=== PATIENT | female | born 1930 | race Caucasian/White ===

== ENCOUNTER 2017-09-16 17:17 | Inpatient (IN) | payer MEDICARE, MEDICAID ==
[~2017-09-16] VITALS: Ht 165.1 cm; Wt 49.9 kg
[2017-09-16 20:00] VITALS: BP 158/53
--- NOTE | 2017-09-16 20:05 | NUR ---
RN TEL ADMITION NOTE PT DIRECT ADMIT FROM SPRINGER, AOX3, JAPANESE SPEAKING WITH LITTLE BENGALI ABLE TO UNDERSTAND, PATIENT CARRIER NEEDED. ON NC @ 2L/PM WELL AMANDA, DENIES ANY PAIN OR DISCOMFORT. EMT BROUGHT PT STRAIGHT TO PIERRE INSTEAD OF ADMITTING. REPORT GIVEN BY DAY SHIFT NURSE PT ADMITTED FOR CHF, BASSAM TRANSPORTATION TECHNICIAN ADMITTING, CAME TO ASSES PT BY BED. NO SKIN ISSUES NOTED, W/ LAC #20G, ALL ADMITTING ORDERS ENTERED PER PROTOCOL, SAFETY MEASURES MET, CL WNL.
[2017-09-16] MEDS ORDERED: MORPHINE SULFATE INJ 2 MG/ML DISP.SYRIN IV PRN (20:30)
[2017-09-16] MEDS ORDERED: ACETAMINOPHEN 325 MG TABLET PO PRN (20:30)
[2017-09-16] MEDS ORDERED: HYDROCODONE/APAP 5/325MG 1 EACH TABLET PO PRN (20:30)
[2017-09-16] MEDS ORDERED: ONDANSETRON HCL/PF 4 MG/2 ML VIAL IVP PRN (20:30)
[2017-09-16] MEDS ORDERED: MAG HYDROX/AL HYDROX/SIMETH 30 ML UDC PO PRN (20:30)
[2017-09-16] MEDS ORDERED: TEMAZEPAM 15 MG CAPSULE PO PRN (20:30)
[2017-09-16] MEDS ORDERED: MAGNESIUM HYDROXIDE 30 ML UDC PO PRN (20:30)
[2017-09-16] MEDS ORDERED: FURO40TA5 PO (20:41)
[2017-09-16] MEDS ORDERED: LEVO500T90 PO (20:41)
[2017-09-16] MEDS ORDERED: AMIO200T4 PO (20:41)
[2017-09-16] MEDS ORDERED: NAPR-1192 PO (20:41)
[2017-09-16] MEDS ORDERED: AMLO10TA6 PO (20:41)
[2017-09-16] MEDS ORDERED: POTA20TA10 PO (20:41)
[2017-09-16] MEDS ORDERED: ERGO500040 PO (20:41)
[2017-09-16] MEDS ORDERED: VALS80TA2 PO (20:41)
[2017-09-16] MEDS ORDERED: ATOR40TA PO (20:41)
[2017-09-16] MEDS ORDERED: FERR325T23 PO (20:41)
[2017-09-16] MEDS ORDERED: ATEN50TA PO (20:41)
[2017-09-16] MEDS ORDERED: RIVA10TA PO (20:44)
[2017-09-16] MEDS ORDERED: ERGOCALCIFEROL (VITAMIN D 2) 50,000 UNIT CAPSULE PO SCH (21:00)
[2017-09-16] MEDS ORDERED: INSULIN REGULAR, HUMAN 100 UNIT/ML 3 ML VIAL SQ PRN (21:30)
[2017-09-16] MEDS ORDERED: DEXTROSE 50%-WATER 50 ML DISP.SYRIN IV PRN (21:30)
[2017-09-16] MEDS: BLOOD SUGAR DIAGNOSTIC 1 EACH STRIP IN SCH (22:32)
[2017-09-16] MEDS: ATORVASTATIN 40 MG TABLET PO SCH (22:32)
[2017-09-17] VITALS: BP 133/38
[2017-09-17 04:00] VITALS: BP 134/38
[2017-09-17 06:51] LABS: EOSINOPHILS % (AUTO) 0.6 % (0.0-6.0); HEMATOCRIT 29 % (33-45); HEMOGLOBIN 9.5 g/dL (11.5-14.8); LYMPHOCYTES # (AUTO) 0.8 /CMM (0.8-4.8); LYMPHOCYTES % (AUTO) 5.6 % (20.0-44.0); MEAN CORPUSCULAR HGB CONC 33 g/dl (31.0-36.0); MEAN CORPUSCULAR VOLUME 85 fL (82-100); MONOCYTES # (AUTO) 0.4 /CMM (0.1-1.30); NEUTROPHILS # (AUTO) 13.2 /CMM (1.8-8.9); NEUTROPHILS % (AUTO) 90.8 % (43.0-81.0); PLATELET COUNT (AUTO) 339 /CMM (150-450); RDW COEFFICIENT OF VARIATION 16.4 (11.5-15.0); RED BLOOD CELL COUNT(AUTO) 3.41 MIL/uL (4.0-5.2); WHITE BLOOD COUNT (AUTO) 14.5 K/uL (4.3-11.0)
--- NOTE | 2017-09-17 06:56 | NUR ---
RN TEL CLOSING NOTE PT ASLEEP IN BED VS STABLE, NO SOB, ALL NEEDS MET, KEPT CLEAN AND DRY, SAFETY MEASURES MET CL WR. WILL ENDORSE TO AM SHIFT TO F/U ON PLAN OF CARE.
[2017-09-17 07:02] LABS: CALCIUM, SERUM 9.2 mg/dL (8.5-10.1); CARBON DIOXIDE 28 mmol/L (21-32); CHLORIDE 108 mmol/L (98-107); CREATININE 0.8 mg/dL (0.6-1.3); GLUCOSE 92 mg/dL (74-106); MAGNESIUM 2.3 mg/dL (1.8-2.4); PHOSPHORUS 4.6 mg/dL (2.5-4.9); POTASSIUM 3.9 mmol/L (3.5-5.1); SODIUM SERUM 144 mmol/L (136-145); UREA NITROGEN, BLOOD 15 mg/dL (7-18)
[2017-09-17 07:08] LABS: TROPONIN I < 0.017 ng/mL (0.00-0.056)
[2017-09-17 07:10] LABS: CHOLESTEROL 139 mg/dL (<200); HDL CHOLESTEROL 39 mg/dL (40-60); LDL 82 mg/dL (0-99); THYROID STIMULATING HORMONE 2.995 uIU/mL (0.358-3.74); TRIGLYCERIDES 68 mg/dL (30-150)
--- NOTE | 2017-09-17 07:30 | NUR ---
DAIRY CATTLE FARM WORKER INITIAL NOTES: RECEIVED PT AWAKE IN BED. A&O X4. SPEAKS PERSIAN WELL SOME PARAGUAYAN. ON O2 VIA NC AT 2LPM, O2 SATURATION @95%. NO SOB NOTED AT THIS TIME. PT DENIES ANY PAIN OR DISCOMFORT. ON TELE MONITOR SINUS FRANCISCA, HR AT 54. SKIN INTACT. IV TO L AC #20GAUGE, PATENT AND INTACT. PT WITH BREAKFAST TRAY AT BEDSIDE. WILL CONTINUE TO MONITOR PT.
[2017-09-17 08:00] VITALS: BP_SYST 146; BP_DIAS 47; BP_DIAS 57
[2017-09-17] MEDS: BLOOD SUGAR DIAGNOSTIC 1 EACH STRIP IN SCH ×4 (08:05→22:02)
[2017-09-17 08:19] LABS: IRON, SERUM 11 ug/dl (50-175); TOTAL IRON BINDING CAPACITY 243 ug/dl (250-450)
[2017-09-17] MEDS ORDERED: FERROUS SULFATE (325 MG) 325 MG/TAB TABLET PO SCH (09:00)
[2017-09-17] MEDS: VALSARTAN 80 MG TABLET PO SCH (09:08)
[2017-09-17] MEDS: CEFTRIAXONE 1 G in IV NS 0.9% 50 ML IV SCH (09:08)
[2017-09-17] MEDS: FUROSEMIDE 40 MG TABLET PO SCH (09:08)
[2017-09-17] MEDS: ATENOLOL 50 MG TABLET PO SCH (09:09)
[2017-09-17] MEDS: AMLODIPINE BESYLATE 10 MG TABLET PO SCH (09:09)
[2017-09-17] MEDS: ASPIRIN 81 MG TAB.CHEW PO SCH (09:09)
[2017-09-17] MEDS: RIVAROXABAN 10 MG TABLET PO SCH (09:11)
[2017-09-17] MEDS: AMIODARONE HCL 200 MG TABLET PO SCH (09:11)
[2017-09-17] MEDS: POTASSIUM CHLORIDE 20 MEQ TAB.PRT.SR PO SCH (09:11)
[2017-09-17 12:00] VITALS: BP_SYST 145; BP_DIAS 35; BP_DIAS 45
--- NOTE | 2017-09-17 12:00 | NUR ---
CONTRACTS PARALEGAL NOTES: ECHO, CXR AND VENOUS DOPPLER STUDY DONE AT BEDSIDE ORDERED. CONT TO MONITOR PT.
[2017-09-17] MEDS: SOD FERRIC GLUC 125 MG in IV NS 0.9% 100 ML IV SCH (14:00)
--- NOTE | 2017-09-17 15:45 | NUR ---
LIVESTOCK SPECULATOR NOTES: GI DR AT BEDSIDE DUE TO LOW HGB LEVELS. NO S/S OF BLEEDING NOTED, RELAYED TO MD. 1ST BAG OF FERRELICIT HUNG ORDERED. AWAITING FOR PT TO HAVE BM TO COLLECT SAMPLE FOR OCCULT BLOOD. WILL CONTINUE TO MONITOR.
[2017-09-17 16:00] VITALS: BP 141/38
[2017-09-17] MEDS: POLYETHYLENE GLYCOL 3350 17 GM POWD.PACK PO SCH ×2 (16:20→22:01)
[2017-09-17] MEDS: FAMOTIDINE/PF INJ 20 MG/2 ML VIAL IV SCH (16:21)
[2017-09-17 17:22] LABS: INR 1.9 (0.87-1.13)
--- NOTE | 2017-09-17 18:30 | NUR ---
ROD FINISHER END NOTE: PT REMAINS IN BED, AWAKE. DENIES ANY PAIN OR DISCOMFORT AT THIS TIME. REMAINS ON O2 VIA NC AT 2LPM, SATURATION 92-94%. NO SOB NOTED AT THIS TIME. MEDICATIONS GIVEN WITHOUT COMPLICATION. FAMILY AT BEDSIDE THROUGHOUT THE SHIFT, AWARE OF PLAN OF CARE. NO BLEEDING NOTED THROUGHOUT THE SHIFT. LABS SCHEDULED FOR TOMORROW MORNING. BED IN LOW LOCKED POSITION, CALL LIGHT WITHIN REACH. WILL ENDORSE TO PM SHIFT NURSE FOR CONTINUITY OF CARE.
[2017-09-17 20:00] VITALS: BP 149/75
--- NOTE | 2017-09-17 20:00 | NUR ---
RN INITIAL NOTES: RECEIVED PT AWAKE IN BED. A&O X4. SPEAKS [place]IMBABWE[place] WELL SOME TURKMEN. ON O2 VIA NC AT 2LPM, O2 SATURATION @95%. NO SOB NOTED AT THIS TIME. PT DENIES ANY PAIN OR DISCOMFORT. ON TELE MONITOR SINUS FRANCISCA, HR AT 53. SKIN INTACT. IV TO L AC #20GAUGE, PATENT AND INTACT. WILL CONTINUE TO MONITOR.
[2017-09-17] MEDS: ATORVASTATIN 40 MG TABLET PO SCH (22:02)
[2017-09-18] VITALS: BP 152/45
[2017-09-18 04:00] VITALS: BP 159/50
[2017-09-18 06:24] LABS: BASOPHILS # (AUTO) 0.1 /CMM (0.0-0.2); BASOPHILS % (AUTO) 0.5 % (0.0-2.0); EOSINOPHILS % (AUTO) 2.5 % (0.0-6.0); HEMATOCRIT 29 % (33-45); HEMOGLOBIN 9.5 g/dL (11.5-14.8); LYMPHOCYTES # (AUTO) 0.8 /CMM (0.8-4.8); LYMPHOCYTES % (AUTO) 8.7 % (20.0-44.0); MEAN CORPUSCULAR HGB CONC 33 g/dl (31.0-36.0); MEAN CORPUSCULAR VOLUME 85 fL (82-100); MONOCYTES # (AUTO) 0.6 /CMM (0.1-1.30); MONOCYTES % (AUTO) 6.2 % (2.0-12.0); NEUTROPHILS % (AUTO) 82.1 % (43.0-81.0); PLATELET COUNT (AUTO) 336 /CMM (150-450); RDW COEFFICIENT OF VARIATION 16.6 (11.5-15.0); RED BLOOD CELL COUNT(AUTO) 3.38 MIL/uL (4.0-5.2); WHITE BLOOD COUNT (AUTO) 9.8 K/uL (4.3-11.0)
[2017-09-18 06:37] LABS: ALANINE AMINOTRANSFERASE 35 U/L (12-78); ALBUMIN 2.6 g/dL (3.4-5.0); ALKALINE PHOSPHATASE 130 U/L (46-116); ASPARTATE AMINOTRANSFERASE 28 U/L (15-37); BILIRUBIN,TOTAL 0.5 mg/dL (0.2-1.0); CALCIUM, SERUM 8.8 mg/dL (8.5-10.1); CARBON DIOXIDE 29 mmol/L (21-32); CHLORIDE 105 mmol/L (98-107); CREATININE 0.9 mg/dL (0.6-1.3); GLUCOSE 95 mg/dL (74-106); MAGNESIUM 2.3 mg/dL (1.8-2.4); PHOSPHORUS 3.6 mg/dL (2.5-4.9); POTASSIUM 3.5 mmol/L (3.5-5.1); SODIUM SERUM 141 mmol/L (136-145); TOTAL PROTEIN, SERUM 7.3 g/dL (6.4-8.2); UREA NITROGEN, BLOOD 15 mg/dL (7-18)
--- NOTE | 2017-09-18 06:48 | NUR ---
RN CLOSING NOTE PT ASLEEP IN BED VS STABLE, NO SOB, ALL NEEDS MET, KEPT CLEAN AND DRY, SAFETY MEASURES MET CL WR. WILL ENDORSE TO AM RN.
--- NOTE | 2017-09-18 07:30 | NUR ---
ELECTRONICS SYSTEM MECHANIC INITIAL NOTES: RECEIVED PT IN BED SLEEPING, EASY TO AROUSE. ON O2 VIA NC AT 2LPM ORDERED, O2 SATURATION 96%. PT DENIES ANY PAIN OR DISCOMFORT AT THIS TIME. BED IN LOW, LOCKED POSITION, BED ALARM ON FOR SAFETY, CALL LIGHT WITHIN REACH. PLAN OF CARE DISCUSSED WITH PT. WILL CONTINUE TO MONITOR.
--- NOTE | 2017-09-18 07:40 | NUR ---
SHEET ROCK NAILER NOTES: ID PM SHIFT RN, BED SCALE NOT WORKING FOR DAILY WEIGHTS. CHARGE NURSE AWARE AND WAITING FOR BED SCALE TO BE FIXED.
[2017-09-18] MEDS: BLOOD SUGAR DIAGNOSTIC 1 EACH STRIP IN SCH ×4 (07:46→21:32)
[2017-09-18 08:00] VITALS: BP_SYST 155; BP_DIAS 107; BP_DIAS 97
--- NOTE | 2017-09-18 08:00 | NUR ---
CUT ORDER HAND WEIGHTS: BED SCALE FIXED. PT WEIGHT IS 121 LBS.
[2017-09-18] MEDS: POTASSIUM CHLORIDE 20 MEQ TAB.PRT.SR PO SCH ×4 (08:41→12:25)
[2017-09-18] MEDS: ASPIRIN 81 MG TAB.CHEW PO SCH (08:41)
[2017-09-18] MEDS: FAMOTIDINE/PF INJ 20 MG/2 ML VIAL IV SCH ×2 (08:41→21:29)
[2017-09-18] MEDS: FUROSEMIDE 40 MG TABLET PO SCH (08:41)
[2017-09-18] MEDS: RIVAROXABAN 10 MG TABLET PO SCH (08:42)
[2017-09-18] MEDS: AMLODIPINE BESYLATE 10 MG TABLET PO SCH (08:43)
[2017-09-18] MEDS: AMIODARONE HCL 200 MG TABLET PO SCH (08:44)
[2017-09-18] MEDS: ATENOLOL 50 MG TABLET PO SCH (08:44)
[2017-09-18] MEDS: VALSARTAN 80 MG TABLET PO SCH (08:44)
[2017-09-18] MEDS: CEFTRIAXONE 1 G in IV NS 0.9% 50 ML IV SCH (08:53)
--- NOTE | 2017-09-18 10:16 | NUR ---
RN NOTES: DR WOO IN TO SEE PT. NEW ORDERS RECEIVED. PT MADE AWARE
[2017-09-18] MEDS: FUROSEMIDE 40 MG/4 ML VIAL IV SCH ×3 (10:23→18:11)
[2017-09-18 12:00] VITALS: BP 150/47
[2017-09-18] MEDS: SOD FERRIC GLUC 125 MG in IV NS 0.9% 100 ML IV SCH (14:20)
[2017-09-18 16:00] VITALS: BP 133/54
--- NOTE | 2017-09-18 18:30 | NUR ---
RN M/S END NOTES: PT REMAINS IN BED, AWAKE. A&O X4. DENIES ANY PAIN OR DISCOMFORT AT THIS TIME. BED IN LOW, LOCKED POSITION. BED ALARM ON. CALL LIGHT WITHIN REACH. REMAINS ON O2 VIA NC AT 2LPM, NO SOB NOTED. WILL ENDORSE TO PM SHIFT RN FOR CONTINUITY OF CARE.
--- NOTE | 2017-09-18 19:25 | NUR ---
MS RN NOTES RECEIVED PT ON BED. A/0 X4. ON NASAL CANULA 2LPM SATURATING WELL. IV ACCESS ON LEFT WRIST #24 PATENT AND INTACT. BED ALARM ON. HEAD OF BED ELEVATED. SIDE RAILS UP. CALL LIGHT IS PLACED WITHIN REACH. WILL CONTINUE TO MONITOR PT CLOSELY.
[2017-09-18 20:00] VITALS: BP_SYST 141; BP_DIAS 46; BP_DIAS 56
[2017-09-18] MEDS: ATORVASTATIN 40 MG TABLET PO SCH (21:29)
[2017-09-18] MEDS: POLYETHYLENE GLYCOL 3350 17 GM POWD.PACK PO SCH (21:35)
[2017-09-19 04:00] VITALS: BP 129/57
[2017-09-19 06:26] LABS: BASOPHILS % (AUTO) 0.3 % (0.0-2.0); EOSINOPHILS % (AUTO) 2.3 % (0.0-6.0); HEMATOCRIT 29 % (33-45); HEMOGLOBIN 9.5 g/dL (11.5-14.8); LYMPHOCYTES # (AUTO) 0.7 /CMM (0.8-4.8); LYMPHOCYTES % (AUTO) 7.2 % (20.0-44.0); MEAN CORPUSCULAR HGB CONC 33 g/dl (31.0-36.0); MEAN CORPUSCULAR VOLUME 85 fL (82-100); MONOCYTES # (AUTO) 0.6 /CMM (0.1-1.30); MONOCYTES % (AUTO) 6.4 % (2.0-12.0); NEUTROPHILS # (AUTO) 7.7 /CMM (1.8-8.9); NEUTROPHILS % (AUTO) 83.8 % (43.0-81.0); PLATELET COUNT (AUTO) 349 /CMM (150-450); RDW COEFFICIENT OF VARIATION 16.4 (11.5-15.0); RED BLOOD CELL COUNT(AUTO) 3.42 MIL/uL (4.0-5.2); WHITE BLOOD COUNT (AUTO) 9.1 K/uL (4.3-11.0)
[2017-09-19 06:45] LABS: ALANINE AMINOTRANSFERASE 28 U/L (12-78); ALBUMIN 2.6 g/dL (3.4-5.0); ALKALINE PHOSPHATASE 114 U/L (46-116); ASPARTATE AMINOTRANSFERASE 23 U/L (15-37); BILIRUBIN,TOTAL 0.3 mg/dL (0.2-1.0); CALCIUM, SERUM 8.7 mg/dL (8.5-10.1); CARBON DIOXIDE 28 mmol/L (21-32); CHLORIDE 105 mmol/L (98-107); CREATININE 0.9 mg/dL (0.6-1.3); GLUCOSE 96 mg/dL (74-106); MAGNESIUM 2.1 mg/dL (1.8-2.4); PHOSPHORUS 3.7 mg/dL (2.5-4.9); POTASSIUM 3.8 mmol/L (3.5-5.1); SODIUM SERUM 142 mmol/L (136-145); TOTAL PROTEIN, SERUM 7.2 g/dL (6.4-8.2); UREA NITROGEN, BLOOD 13 mg/dL (7-18)
--- NOTE | 2017-09-19 07:17 | NUR ---
MS RN NOTES NO ACUTE CHANGES NOTED DURING THE SHIFT.PROVIDED COMFORT AND SAFETY. WILL ENDORSE TO THE AM NURSE FOR JASPREET.
--- NOTE | 2017-09-19 07:30 | NUR ---
MS/RN OPENING NOTE PATIENT IS RECEIVED IN BED AWAKE. ALERT AND ORIENTED X4. DENIES SOB. RESPIRATION REGULAR AND UNLABORED. PATIENT ON OXYGEN AT 2L/MIN VIA NC. DENIES PAIN. LEFT WRIST G 24 PATENT AND SALINE LOCKED. BED LOW AND LOCKED. SIDE RAILS UP X2. CALL LIGHT WITHIN REACH. WILL CONTINUE TO MONITOR.
[2017-09-19 08:00] VITALS: BP 140/50
--- NOTE | 2017-09-19 08:00 | NUR ---
MS/RN NOTE BLOOD SUGAR 97. NO COVERAGE GIVEN.
[2017-09-19] MEDS: POTASSIUM CHLORIDE 20 MEQ TAB.PRT.SR PO SCH ×2 (08:18→09:25)
[2017-09-19] MEDS: BLOOD SUGAR DIAGNOSTIC 1 EACH STRIP IN SCH ×2 (08:18→12:21)
[2017-09-19] MEDS: FAMOTIDINE/PF INJ 20 MG/2 ML VIAL IV SCH (08:19)
[2017-09-19] MEDS: VALSARTAN 80 MG TABLET PO SCH (08:19)
[2017-09-19] MEDS: FUROSEMIDE 40 MG/4 ML VIAL IV SCH ×2 (08:19→12:22)
[2017-09-19] MEDS: ATENOLOL 50 MG TABLET PO SCH (08:20)
[2017-09-19] MEDS: AMLODIPINE BESYLATE 10 MG TABLET PO SCH (08:20)
[2017-09-19] MEDS: AMIODARONE HCL 200 MG TABLET PO SCH (08:20)
[2017-09-19] MEDS: CEFTRIAXONE 1 G in IV NS 0.9% 50 ML IV SCH (08:27)
[2017-09-19 12:00] VITALS: BP 131/72
--- NOTE | 2017-09-19 13:06 | NUR ---
MS/RN CLOSING NOTE PATIENT ALERT AND ORIENTED X4. DENIES PAIN. DENIES SOB. OXYGEN SATURATION LEVEL IN ROOM AIR AT 97%. RESPIRATION REGULAR AND UNLABORED. PATIENT IN NO APPARENT DISTRESS. DISCHARGE EDUCATIONS/INSTRUCTIONS GIVEN TO THE PATIENT AND THE PATIENT VERBALIZED UNDERSTANDING. PATIENT LEFT THE HOSPITAL IN STABLE CONDITION. PATIENT WAS PICKED UP BY SON TEOFILO IN PRIVATE CAR.
== END 2017-09-19 13:05 | disposition home or self-care (01) | DRG 291 ==
LOC: TELE1 19:54 → MEDSG1 09-18 10:04
PROVIDERS: ADMIT Nurse Practitioner Acute Care; ATTEND Nurse Practitioner Acute Care
DX: I11.0 Hypertensive heart disease with heart failure (principal); E43 Unspecified severe protein-calorie malnutrition; N39.0 Urinary tract infection, site not specified; D68.59 Other primary thrombophilia; I50.33 Acute on chronic diastolic (congestive) heart failure; I48.0 Paroxysmal atrial fibrillation; E78.5 Hyperlipidemia, unspecified; E87.6 Hypokalemia; I25.10 Atherosclerotic heart disease of native coronary artery without angina pectoris; Z95.1 Presence of aortocoronary bypass graft; B96.89 Other specified bacterial agents as the cause of diseases classified elsewhere; E11.65 Type 2 diabetes mellitus with hyperglycemia; I73.9 Peripheral vascular disease, unspecified; K59.00 Constipation, unspecified; D50.9 Iron deficiency anemia, unspecified
CPT/HCPCS: 36415; 71045-TC; 80048-TC; 80053-TC; 80061-TC; 82962-TC; 83540-TC; 83735-TC; 84100-TC; 84443-TC; 84484-TC; 85025-TC; 85610-TC; 87081-TC; 93307-TC; A4216; J0696; J1815; J1940; J2916; J3490; J7030

== ENCOUNTER 2019-09-24 08:00 | Inpatient (IN) | payer MEDICARE, OTHER ==
[2019-09-24] VITALS (11 sets, daily range): BP systolic 134–159; BP diastolic 66–86
[~2019-09-24] VITALS: Ht 152.4 cm; Wt 42.6 kg
[~2019-09-24 08:00] MED LIST: AMIO200T4 PO; AMLO10TA7 PO; ATEN50TA PO; ATOR40TA PO; ERGO500040 PO; FERR325T23 PO; FURO40TA5 PO; LEVO500T90 PO; NAPR-1192 PO; POTA20TA10 PO; RIVA10TA PO; VALS80TA2 PO
--- NOTE | 2019-09-24 08:00 | NUR ---
PT BIBRA FROM SNF C/O SOB STARTED 30 MINS BEATER AND PULPER FEEDER, PT IS AAOX2, NOTED RESPIRATORY DISTRESS, HOOKED TO O2 NB AT 15LPM AND J2EE PROGRAMMER, KEPT RESTED AND COMFORTABLE, WILL CONTINUE TO MONITOR.
--- NOTE | 2019-09-24 08:05 | NUR ---
AT BEDSIDE FOR EVAL.
--- NOTE | 2019-09-24 08:15 | NUR ---
IV LINE ESTABLISHED BLOOD DRAWN AND SENT TO LAB.
[2019-09-24 08:28] LABS: ABG BASE EXCESS 2.3 mmol/L; ABG OXYGEN SATURATION 90.7 % (92.0-98.5); ABG PCO2 56.2 mmHg (35.0-45.0); ABG PH 7.335 (7.350-7.450); AaDO2 447.4 mmHg; COHb 0.4 % (0.5-1.5); MetHb 0.5 % (0.0-1.5); O2Hb 89.9 % (94.0-97.0); SITE, ABG Left Radial
[2019-09-24] MEDS ORDERED: FUROSEMIDE 20 MG/2 ML VIAL ONE (08:28)
[2019-09-24] MEDS ORDERED: AMIN30LI2 PO (08:29)
[2019-09-24] MEDS ORDERED: DILTIAZEM HCL 25 MG IV ONE (08:29)
[2019-09-24] MEDS ORDERED: CRAN425C6 PO (08:29)
[2019-09-24] MEDS ORDERED: COLL30OI TP (08:29)
[2019-09-24] MEDS ORDERED: CRAN3875 PO (08:29)
[2019-09-24] MEDS ORDERED: BISM262O64 PO (08:29)
[2019-09-24] MEDS ORDERED: TRAZ-182 PO (08:29)
[2019-09-24] MEDS ORDERED: ACET-2605 PO (08:29)
[2019-09-24] MEDS ORDERED: MULT-447 PO (08:29)
[2019-09-24] MEDS ORDERED: LEVO50TA8 PO (08:29)
[2019-09-24] MEDS ORDERED: ACID1TAB12 PO (08:29)
[2019-09-24] MEDS ORDERED: VANC125C11 PO (08:29)
[2019-09-24] MEDS ORDERED: ARGI1POW13 PO (08:29)
[2019-09-24] MEDS ORDERED: METO25TA3 PO (08:29)
[2019-09-24] MEDS ORDERED: ASPI-1169 PO (08:29)
[2019-09-24] MEDS ORDERED: OMEP20CA15 PO (08:29)
[2019-09-24] MEDS ORDERED: ACET-868 PO (08:29)
[2019-09-24] MEDS ORDERED: OMEG1CAP PO (08:29)
[2019-09-24] MEDS ORDERED: ASCO-352 PO (08:29)
[2019-09-24] MEDS ORDERED: METO-295 PO (08:29)
--- NOTE | 2019-09-24 08:29 | NUR ---
CALLED FOR ICU BED.
[2019-09-24] MEDS ORDERED: DILTIAZEM HCL IV 125 MG in IV D5W 100 ML IV ONE (08:30)
[2019-09-24] MEDS ORDERED: ASPIRIN 300 MG/SUPP.RECT RC ONE (08:30)
[2019-09-24] MEDS ORDERED: FUROSEMIDE 20 MG/2 ML VIAL IV ONE (08:30)
[2019-09-24] MEDS ORDERED: DILTIAZEM HCL 25 MG IV IVP ONE (08:30)
--- NOTE | 2019-09-24 08:35 | NUR ---
COVID SWAB OBTAINED AND SENT TO LAB.
--- NOTE | 2019-09-24 08:36 | NUR ---
MOVE SHEET SUBMITTED TO ADMITTING.
--- NOTE | 2019-09-24 08:42 | NUR ---
FRANDY CALLED ITS ALE [facility]
--- NOTE | 2019-09-24 08:43 | NUR ---
GOT BED ICU 262
--- NOTE | 2019-09-24 08:44 | NUR ---
RT AT BEDSIDE FOR BIPAP SET UP ORDERED BY .
[2019-09-24] MEDS ORDERED: ACETAMINOPHEN 650 MG/SUPP.RECT RC ONE (08:57)
[2019-09-24] MEDS ORDERED: CEFEPIME 1 GM in IV D5W 50 ML IV ONE ×2 (09:00→15:00)
[2019-09-24] MEDS ORDERED: VANCOMYCIN 1 GM in IV D5W 250 ML IV ONE (09:00)
[2019-09-24 09:05] LABS: BASOPHILS # (AUTO) 0.2 /CMM (0.0-0.2); BASOPHILS % (AUTO) 0.5 % (0.0-2.0); HEMATOCRIT 38 % (33-45); HEMOGLOBIN 12.2 g/dL (11.5-14.8); LYMPHOCYTES # (AUTO) 1.9 /CMM (0.8-4.8); MEAN CORPUSCULAR HGB CONC 32 g/dl (31.0-36.0); MEAN CORPUSCULAR VOLUME 99 fL (82-100); MONOCYTES # (AUTO) 1.5 /CMM (0.1-1.30); MONOCYTES % (AUTO) 4.1 % (2.0-12.0); NEUTROPHILS # (AUTO) 34.3 /CMM (1.8-8.9); NEUTROPHILS % (AUTO) 90.4 % (43.0-81.0); PLATELET COUNT (AUTO) 514 /CMM (150-450); RED BLOOD CELL COUNT(AUTO) 3.84 MIL/uL (4.0-5.2)
[2019-09-24 09:10] LABS: CALCIUM, SERUM 9.3 mg/dL (8.5-10.1); CARBON DIOXIDE 33 mmol/L (21-32); CHLORIDE 98 mmol/L (98-107); CREATININE 0.8 mg/dL (0.6-1.3); GLUCOSE 160 mg/dL (74-106); POTASSIUM 4.5 mmol/L (3.5-5.1); SODIUM SERUM 137 mmol/L (136-145); UREA NITROGEN, BLOOD 18 mg/dL (7-18)
[2019-09-24 09:11] LABS: WHITE BLOOD COUNT (AUTO) 37.9 K/uL (4.3-11.0)
[2019-09-24 09:23] LABS: ALANINE AMINOTRANSFERASE 72 U/L (12-78); ALBUMIN 2.6 g/dL (3.4-5.0); ALKALINE PHOSPHATASE 291 U/L (46-116); ASPARTATE AMINOTRANSFERASE 92 U/L (15-37); B-TYPE NATRIURETIC PEPTIDE 7750 PG/ML (0-125); BILIRUBIN,TOTAL 0.6 mg/dL (0.2-1.0); TOTAL PROTEIN, SERUM 7.5 g/dL (6.4-8.2)
[2019-09-24 09:36] LABS: APPEARANCE,URINE Clear (CLEAR); BILIRUBIN,URINE Negative (NEGATIVE); BLOOD, URINE Large Ery/uL (NEGATIVE); COLOR,URINE Yellow (YELLOW); KETONES,URINE Negative (NEGATIVE); LEUKOCYTE ESTERASE ,URINE Large (NEGATIVE); NITRITE, URINE Negative (NEGATIVE); PH,URINE 6.5 (5.0-8.0); PROTEIN,URINE 100 mg/dl (NEGATIVE); UGLUCOSE Negative (NEGATIVE); UROBILINOGEN,URINE 0.2 EU/dL (0.2)
[2019-09-24 09:41] LABS: BACTERIA,URINE Few /HPF (None Seen); SQUAMOUS EPITHELIAL CELL,UR Few /HPF (None Seen)
[2019-09-24 10:02] LABS: CREATINE KINASE, TOTAL 61 U/L (26-192); FERRITIN 2788 ng/mL (8-388)
[2019-09-24 10:03] LABS: C-REACTIVE PROTEIN 11.9 mg/dL (0.0-0.9)
[2019-09-24 10:22] LABS: ABG BASE EXCESS 5.9 mmol/L; ABG OXYGEN SATURATION 97.4 % (92.0-98.5); ABG PCO2 52.6 mmHg (35.0-45.0); ABG PH 7.401 (7.350-7.450); ABG PO2 105.9 mmHg (75.0-100.0); AaDO2 409.3 mmHg; COHb 0.4 % (0.5-1.5); MetHb 0.4 % (0.0-1.5); O2Hb 96.6 % (94.0-97.0); SITE, ABG Right Radial; VENT MODE, BG 15/5 80% RR18
--- NOTE | 2019-09-24 10:50 | NUR ---
REPORT GIVEN TO ROME POWELL FOR JASPREET.
--- NOTE | 2019-09-24 10:50 | NUR ---
DINING ROOM HOST NOTE RECEIVED REPORT FROM ER NURSE CRYSTAL
[2019-09-24 11:40] LABS: D-DIMER 2.1 mg/L(FEU (0.17-0.50)
[2019-09-24 11:50] LABS: LYMPHOCYTES % (MANUAL) 11 % (16-48); MONOCYTES % (MANUAL) 3 % (0-11.0); NEUTROPHILS % (MANUAL) 86 (42-76)
[2019-09-24] MEDS ORDERED: DEXAMETHASONE SOD PHOSPHATE 10 MG/ML VIAL IV ONE (12:00)
[2019-09-24] MEDS ORDERED: DILTIAZEM HCL IV 125 MG in IV NS 0.9% 100 ML IV PRN (12:20)
--- NOTE | 2019-09-24 13:30 | NUR ---
FINANCIAL SERVICES ASSISTANT NOTE SEEN AND EXAMINED BY DR LOMAS, HE WILL PLACE ADMITTING ORDERS
[2019-09-24] MEDS: FUROSEMIDE 40 MG/4 ML VIAL IV SCH ×3 (13:31→21:06)
[2019-09-24] MEDS ORDERED: Z GUARD REMEDY 2 OZ OINT TP PRN (14:00)
[2019-09-24] MEDS ORDERED: ONDANSETRON HCL/PF 4 MG/2 ML VIAL IVP PRN (14:00)
[2019-09-24] MEDS ORDERED: FEE PK DOSING 1 MIN EA MC ONE (14:39)
[2019-09-24 14:47] LABS: BILIRUBIN,DIRECT 0.1 mg/dL (0.0-0.2)
--- NOTE | 2019-09-24 14:55 | NUR ---
STUNT PERSON NOTE CLARIFIED CDIFF ORDER WITH MD, INFORMED STOOL IS SOFT AND BROWN, PER MD HE WOULD STILL LIKE TO HAVE STOOL COLLECTED. PATIENT WAS ON VANCOCIN BEFORE ADMISSION.
--- NOTE | 2019-09-24 15:07 | NUR ---
HIGH SCHOOL PROFESSIONAL NOTE CLARIFIED CARDIZEM DRIP ORDER THAT CONTINUED FROM ER. PER DR CSEILIA DAVENPORT AND START ON AMIO DRIP
[2019-09-24] MEDS ORDERED: AMIODARONE 150 MG in IV D5W 100 ML IV ONE (15:30)
[2019-09-24 15:40] LABS: ABG BASE EXCESS 7.9 mmol/L; ABG OXYGEN SATURATION 98.7 % (92.0-98.5); ABG PCO2 47.6 mmHg (35.0-45.0); ABG PH 7.457 (7.350-7.450); ABG PO2 131.5 mmHg (75.0-100.0); AaDO2 533.9 mmHg; MetHb 0.3 % (0.0-1.5); O2Hb 98.4 % (94.0-97.0); SITE, ABG Right Radial; VENT MODE, BG nrb
[2019-09-24] MEDS: AMIODARONE 450 MG in IV D5W 250 ML IV PRN ×2 (16:45→23:46)
[2019-09-24] MEDS ORDERED: FERROUS SULFATE (325 MG) 325 MG/TAB TABLET PO SCH (17:00)
[2019-09-24] MEDS: RIVAROXABAN 10 MG TABLET PO SCH (18:54)
[2019-09-24] MEDS: IPRATROPIUM BROMIDE 14 GM INHALER (or 12.9 GM) IH SCH (19:30)
--- NOTE | 2019-09-24 19:30 | NUR ---
RN NOTES RECEIVED PATIENT RESTING ON BED. PUI. BREATHING EVEN AND UNLABORED. ON O2 10LPM VIA SIMPLE MASK. DENIES PAIN NO SOB OR ACUTE RESP. DISTRESS. AFEBRILE. AOX3 SOFT SPOKEN. AFIB CONTROLLED ON TELE MONITOR. OFFERED TO EAT DINNER AND ATE SOUP WELL. IV SITE ON LFA G 20 AND LEJ G 20 INTACT AND PATENT RUNNING WITH AMIODARONE DRIP @ 1MG/MIN. DENIES CHEST PAIN. NUNN CATH DRAINED VIA GRAVITY AND KEPT OFF FROM THE FLOOR. KEPT PT CLEAN AND DRY WILL CONTINUE TO MONITOR.
[2019-09-24] MEDS ORDERED: BUMETANIDE INJ 4 MG in IV NS 0.9% 24 ML IV ONE (21:00)
[2019-09-24] MEDS: VANCOMYCIN HCL 125 MG/2.5 ML ORAL.SUSP PO SCH (21:06)
[2019-09-24] MEDS: ATORVASTATIN 40 MG TABLET PO SCH (21:21)
[2019-09-24] MEDS: TRAZODONE 50 MG TABLET PO SCH (21:21)
--- NOTE | 2019-09-24 22:30 | NUR ---
RN NOTES AMIODARONE DRIP CHANGE RATE TO 0.5 MG./MIN PROTOCOL ORDER WILL CONTINUE TO MONITOR.
[2019-09-25] VITALS (24 sets, daily range): BP systolic 111–146; BP diastolic 64–90
[2019-09-25] MEDS: IPRATROPIUM BROMIDE 14 GM INHALER (or 12.9 GM) IH SCH ×4 (01:30→19:30)
[2019-09-25] MEDS: VANCOMYCIN HCL 125 MG/2.5 ML ORAL.SUSP PO SCH ×4 (02:09→17:05)
[2019-09-25 04:20] LABS: HEMATOCRIT 37 % (33-45); HEMOGLOBIN 12.2 g/dL (11.5-14.8); LYMPHOCYTES # (AUTO) 0.5 /CMM (0.8-4.8); LYMPHOCYTES % (AUTO) 3.5 % (20.0-44.0); MEAN CORPUSCULAR HGB CONC 33 g/dl (31.0-36.0); MEAN CORPUSCULAR VOLUME 97 fL (82-100); MONOCYTES # (AUTO) 0.1 /CMM (0.1-1.30); MONOCYTES % (AUTO) 1.1 % (2.0-12.0); NEUTROPHILS # (AUTO) 12.3 /CMM (1.8-8.9); NEUTROPHILS % (AUTO) 95.4 % (43.0-81.0); PLATELET COUNT (AUTO) 284 /CMM (150-450); RED BLOOD CELL COUNT(AUTO) 3.85 MIL/uL (4.0-5.2); WHITE BLOOD COUNT (AUTO) 12.9 K/uL (4.3-11.0)
[2019-09-25] MEDS: VANCOMYCIN 0.75 GM in IV D5W 250 ML IV SCH ×2 (04:48→21:35)
[2019-09-25 04:55] LABS: ALBUMIN 2.2 g/dL (3.4-5.0); BILIRUBIN,TOTAL 0.5 mg/dL (0.2-1.0); CALCIUM, SERUM 8.7 mg/dL (8.5-10.1); CREATININE 0.7 mg/dL (0.6-1.3); MAGNESIUM 1.7 mg/dL (1.8-2.4); PHOSPHORUS 5.1 mg/dL (2.5-4.9); POTASSIUM 3.9 mmol/L (3.5-5.1); TOTAL PROTEIN, SERUM 6.8 g/dL (6.4-8.2)
--- NOTE | 2019-09-25 07:10 | NUR ---
RN NOTES PATIENT ASLEEP WELL. NO SIGNIFICANT CHANGES THROUGHOUT THE SHIFT. CONTINUE ON O2 TITRATED AT 2LPM VIA NC TOLERATED WELL SATURATION REMAINED >92%. AFEBRILE. VSS. REMAINED AFIB CONTROLLED. CONTINUE ON AMIODARONE DRIP @ 0.5 MG/MIN. BEDBATH DONE AND TOLERATED WELL. ENDORSED CONTINUITY OF CARE TO AM NURSE.
--- NOTE | 2019-09-25 08:00 | NUR ---
ICU/RN: INITIAL NOTES,AM RECEIVED REPORT FROM NIGHT NURSE. PT ALERT, AWAKE, FOLLOWS COMMANDS. ON NASAL CANULA 2LITERS, TOLERATING WELL, NO ACUTE DISTRESS NOTED. PT ON TELE, CLAUDE ALEGRIA GTT D/C'S. PT TURNED AND REPOSITIONED. NUNN CATH DRAINING YELLOW URINE. ALL NEEDS WILL BE ATTENDED TO, SAFETY MEASURES TAKEN, BED IN LOW POSITION, SIDE RAILS UP, CALL LIGHT WITHIN REACH. WILL CONTINUE CARE.
--- NOTE | 2019-09-25 08:37 | NUR ---
WOUND CARE CONSULT: REVIEWED CHART, NURSING DOCUMENTATION AND ADMISSION PHOTOS WHICH SHOW SACRAL SCARRING WHICH EXTENDS TO BUTTOCKS AND PURPLE DISCOLORATION, PRESENT ON ADMISSION. RECOMMEND SURGICAL CONSULT. DR ELLINGTON NOTIFIED. RECOMMENDATIONS MADE FOR SKIN PROTECTION. DISCUSSED WITH NURSING STAFF. WILL SEE PRN. KOO IN AGREEMENT WITH PLAN OF CARE. PER NURSING STAFF, PT MOVES ABOUT IN BED AT TIMES.
--- NOTE | 2019-09-25 08:50 | NUR ---
ICU/RN: WOUND NURSE AT BEDSIDE. PT ASSESSED, WILL FOLLOW THROUGH WITH ORDERS. PT TURNED AND REPOSITIONED.
[2019-09-25] MEDS: Magnesium 1GM/D5W 100ML PREMIX 100 ML IV SCH ×2 (08:57→12:19)
[2019-09-25] MEDS: METOPROLOL SUCCINATE 25 MG TAB.SR.24H PO SCH (08:58)
[2019-09-25] MEDS: FUROSEMIDE 100 MG/10 ML VIAL IV SCH ×3 (08:58→17:04)
[2019-09-25] MEDS ORDERED: DEXAMETHASONE SOD PHOSPHATE 10 MG/ML VIAL IV SCH (09:00)
[2019-09-25] MEDS: PANTOPRAZOLE 40 MG VIAL IV SCH (09:03)
[2019-09-25] MEDS: ASPIRIN 81 MG TAB.CHEW PO SCH (09:03)
[2019-09-25] MEDS: LEVOTHYROXINE SODIUM 50 MCG TABLET PO SCH (09:03)
[2019-09-25] MEDS: THERAHONEY GEL 1.5 OZ TUBE TP SCH (09:04)
[2019-09-25] MEDS: CEFEPIME 2 GM in IV D5W 100 ML IV SCH (09:06)
[2019-09-25] MEDS ORDERED: FUROSEMIDE 100 MG/10 ML VIAL IV SCH (17:00)
[2019-09-25] MEDS: RIVAROXABAN 10 MG TABLET PO SCH (17:08)
--- NOTE | 2019-09-25 17:13 | NUR ---
RT BREATHING TX NOT GIVEN DUE TO PENDING COVID-19 RESULTS
--- NOTE | 2019-09-25 19:20 | NUR ---
ICU/RN: ENDING NOTES,AM REPORT ENDORSED TO NIGHT NURSE FOR JASPREET. PT ON NASAL CANULA, NO ACUTE DISTRESS NOTED. ALERT, AWAKE. BED BATH GIVEN, TURNED AND REPOSITIONED. WILL CONTINUE CARE
--- NOTE | 2019-09-25 19:20 | NUR ---
RN NOTES PATIENT AWAKE ON BED. DENIES PAIN WITH O2 2LPM VIA NC TOLERATED WELL WITHOUT ACUTE RESPIRATORY DISTRESS. AFEBRILE. RESULT PENDING FOR COVID TEST ISOLATION PRECAUTION STILL OBSERVED UNTIL RESULT RECEIVED. TELE MONITOR REVEALS AFIB CONTROLLED. NO CHEST PAIN. IV SITE INTACT AND PATENT NO DRIPS PRESENT. KEPT PT CLEAN AND DRY. MOTIVATED AND HELP TO REPOSITION. WILL CONTINUE TO MONITOR.
[2019-09-25] MEDS: ATORVASTATIN 40 MG TABLET PO SCH (21:36)
[2019-09-25] MEDS: TRAZODONE 50 MG TABLET PO SCH (21:36)
--- NOTE | 2019-09-25 22:50 | NUR ---
RN NOTES ECHOCARDIOGRAM DONE AT BEDSIDE.
[2019-09-26] VITALS (16 sets, daily range): BP systolic 105–139; BP diastolic 57–98
[2019-09-26] MEDS: VANCOMYCIN HCL 125 MG/2.5 ML ORAL.SUSP PO SCH ×4 (00:04→18:03)
[2019-09-26] MEDS: IPRATROPIUM BROMIDE 14 GM INHALER (or 12.9 GM) IH SCH ×3 (01:11→20:40)
[2019-09-26 05:58] LABS: BILIRUBIN,TOTAL 0.3 mg/dL (0.2-1.0); CALCIUM, SERUM 8.4 mg/dL (8.5-10.1); CREATININE 0.9 mg/dL (0.6-1.3); MAGNESIUM 2.4 mg/dL (1.8-2.4); PHOSPHORUS 3.6 mg/dL (2.5-4.9); POTASSIUM 3.1 mmol/L (3.5-5.1)
--- NOTE | 2019-09-26 07:12 | NUR ---
RN NOTES PATIENT ASLEEP WELL. NO SIGNIFICANT CHANGES NOTED/ AFEBRILE. NO SOB OR ACUTE RESPIRATORY DISTRESS. REMAINED AFIB CONTROLLED. BED BATH DONE AND TOLERATED HELPING DURING BED BATH. ALL DUE MEDICINE ADMINISTERED ORDERED NO EPISODE OF LOOSE BOWEL NO BM ON THIS SHIFT. CONTINUE ON VANCO FOR C-DIF. CONTINUATION FROM SNF. NUNN CATH DRAINED VIA GRAVITY. KEPT PT CLEAN AND DRY. ENDORSED CONTINUITY OF CARE TO AM NURSE.
[2019-09-26 08:18] LABS: BASOPHILS % (AUTO) 0.2 % (0.0-2.0); HEMATOCRIT 39 % (33-45); HEMOGLOBIN 13.1 g/dL (11.5-14.8); LYMPHOCYTES # (AUTO) 0.4 /CMM (0.8-4.8); LYMPHOCYTES % (AUTO) 4.1 % (20.0-44.0); MEAN CORPUSCULAR HGB CONC 33 g/dl (31.0-36.0); MEAN CORPUSCULAR VOLUME 96 fL (82-100); MONOCYTES # (AUTO) 0.4 /CMM (0.1-1.30); MONOCYTES % (AUTO) 3.9 % (2.0-12.0); NEUTROPHILS # (AUTO) 10.1 /CMM (1.8-8.9); NEUTROPHILS % (AUTO) 91.8 % (43.0-81.0); PLATELET COUNT (AUTO) 284 /CMM (150-450); RED BLOOD CELL COUNT(AUTO) 4.09 MIL/uL (4.0-5.2); WHITE BLOOD COUNT (AUTO) 10.9 K/uL (4.3-11.0)
[2019-09-26] MEDS ORDERED: BUMETANIDE INJ 16 MG in IV NS 0.9% 16 ML IV ONE (09:00)
--- NOTE | 2019-09-26 09:15 | NUR ---
received pt from shift leader, a/o x4, A fib controlled, on 2L NC, sat well, tolerates diet, v/s stable, no pain, pt turned and repositioned.
[2019-09-26] MEDS: ASPIRIN 81 MG TAB.CHEW PO SCH (09:29)
[2019-09-26] MEDS: POTASSIUM CHLORIDE 20 MEQ TAB.PRT.SR PO SCH ×3 (09:29→11:15)
[2019-09-26] MEDS: METOPROLOL SUCCINATE 25 MG TAB.SR.24H PO SCH (09:30)
[2019-09-26] MEDS: PANTOPRAZOLE 40 MG VIAL IV SCH (09:30)
[2019-09-26] MEDS: LEVOTHYROXINE SODIUM 50 MCG TABLET PO SCH (09:30)
[2019-09-26] MEDS: THERAHONEY GEL 1.5 OZ TUBE TP SCH (09:32)
[2019-09-26] MEDS: CEFEPIME 2 GM in IV D5W 100 ML IV SCH (09:32)
[2019-09-26 10:29] LABS: LYMPHOCYTES % (MANUAL) 3 % (16-48); MONOCYTES % (MANUAL) 7 % (0-11.0); NEUTROPHILS % (MANUAL) 90 (42-76)
--- NOTE | 2019-09-26 12:44 | NUR ---
pt transferred to [facility], ACLS followed, v/s stable, no pain.
--- NOTE | 2019-09-26 12:45 | NUR ---
DREDGE MECHANIC NOTES RECEIVED PT FROM LAST REPAIRER VIA BED, PT IS AWAKE, ALERT AND ORIENTED, NO COMPLAINT OF PAIN, NOT IN DISTRESS, ROOM SET UP ORIENTATION PROVIDED TO PT, VERBALIZED UNDERSTANDING, CALL LIGHT PLACED WITHIN REACH, ASSISTED WITH LUNCH, KEPT COMFORTABLE.
[2019-09-26] MEDS: VANCOMYCIN 0.75 GM in IV D5W 250 ML IV SCH (16:00)
[2019-09-26] MEDS: ENSURE ENLIVE 237 ML LIQUID (VANILLA) PO SCH (18:02)
--- NOTE | 2019-09-26 18:22 | NUR ---
RESTORATION ECOLOGIST Closing Notes Patient is A/O X 4 alert and calm. She is in a 2L nasal cannula. IV IJ# 20G is intact infusing Bumex in NS at 10mls/hr. Scheduled medication were given. Tolerated dinner well. Bed is in low position semi fowlers with side rails up x 2 for safety. Call light is within reach. AM labs due in the morning, continue with antibiotics and follow up with infection disease, diuretics per cardiology. Will endorse to the PM shift.
--- NOTE | 2019-09-26 19:30 | NUR ---
telecommunications sales representative opening notes received patient in bed. a/ox1. on oxygen 2l/min via nasa cannula. respirations are even and unlabored. no s/s sob noted. no c/o pain at this itme . external tele monitor reads controlled afib hr 70-80s. in n o apparent in stress. iv access in right IJ#20 running bumex. also iv access in LFA#20 patent and saline locked. burciaga catheter is present, draining to gravity, urine is yellow and clear. bed is low and locked, hob elevated in semi fowlers,. side rial sup x2, call light within reach. will continue to monitor.
[2019-09-26] MEDS: TRAZODONE 50 MG TABLET PO SCH (21:55)
[2019-09-26] MEDS: ATORVASTATIN 40 MG TABLET PO SCH (21:55)
[2019-09-27] VITALS: BP 104/66
[2019-09-27] MEDS: VANCOMYCIN HCL 125 MG/2.5 ML ORAL.SUSP PO SCH ×5 (01:08→23:47)
[2019-09-27] MEDS: IPRATROPIUM BROMIDE 14 GM INHALER (or 12.9 GM) IH SCH ×3 (02:59→19:30)
[2019-09-27 04:00] VITALS: BP 124/71
--- NOTE | 2019-09-27 06:21 | NUR ---
director telemetry closing notes patient in bed. a/ox4. remain on oxygen 2l/min via nasal cannula. respirations are even and unlabored. no sob noted. no c/o pain . external tele monitor reads controlled afib. no distress. iv access maintained in right IJ#20 patent and saline locked. also iv access in LFA#20 patent and saline locked. burciaga catheter is maintained output 1100. bed is low and locked, hob elevated in semi fowlers,. side rial sup x2, call light within reach. will endorse to next shift.
[2019-09-27] MEDS: LEVOTHYROXINE SODIUM 50 MCG TABLET PO SCH (06:34)
[2019-09-27 07:09] LABS: BASOPHILS % (AUTO) 0.1 % (0.0-2.0); EOSINOPHILS % (AUTO) 0.1 % (0.0-6.0); HEMATOCRIT 39 % (33-45); HEMOGLOBIN 12.6 g/dL (11.5-14.8); LYMPHOCYTES # (AUTO) 0.9 /CMM (0.8-4.8); LYMPHOCYTES % (AUTO) 7.6 % (20.0-44.0); MEAN CORPUSCULAR HGB CONC 33 g/dl (31.0-36.0); MEAN CORPUSCULAR VOLUME 97 fL (82-100); MONOCYTES # (AUTO) 0.7 /CMM (0.1-1.30); MONOCYTES % (AUTO) 6.1 % (2.0-12.0); NEUTROPHILS # (AUTO) 10.3 /CMM (1.8-8.9); NEUTROPHILS % (AUTO) 86.1 % (43.0-81.0); PLATELET COUNT (AUTO) 279 /CMM (150-450); RED BLOOD CELL COUNT(AUTO) 3.98 MIL/uL (4.0-5.2)
--- NOTE | 2019-09-27 07:31 | NUR ---
TORCH OPERATOR OPENING NOTES RECEIVED PATIENT IN BED, ASLEEP. PATIENT IS ON OXYGEN THERAPY AT 2 LPM VIA NASAL CANNULA. BREATHING IS EVEN AND UNLABORED, NO SOB NOTED AT THIS TIME. EXTERNAL SHEARING SHED WORKER WITH A CURRENT READING OF CONTROLLED AFIB IN THE 70S. NO S/S OF PAIN NOTED SUCH MOANING, FACIAL GRIMACING OR GUARDING. LFA G # 20 AND RIJ G # 20 IV ACCESS ARE PRESENT AND INTACT. NUNN CATH PRESENT DRAINING YELLOW URINE. SAFETY PRECAUTIONS IN PLACE; BED IN LOW POSITION AND LOCKED, RAILS UP X2, CALL LIGHT WITHIN REACH. WILL CONTINUE TO MONITOR PATIENT.
[2019-09-27 07:44] LABS: ALANINE AMINOTRANSFERASE 120 U/L (12-78); ALBUMIN 2.1 g/dL (3.4-5.0); ALKALINE PHOSPHATASE 250 U/L (46-116); ASPARTATE AMINOTRANSFERASE 87 U/L (15-37); BILIRUBIN,TOTAL 0.3 mg/dL (0.2-1.0); CALCIUM, SERUM 8.5 mg/dL (8.5-10.1); CARBON DIOXIDE 39 mmol/L (21-32); CHLORIDE 96 mmol/L (98-107); CREATININE 0.7 mg/dL (0.6-1.3); GLUCOSE 81 mg/dL (74-106); MAGNESIUM 2.2 mg/dL (1.8-2.4); PHOSPHORUS 2.9 mg/dL (2.5-4.9); POTASSIUM 3.4 mmol/L (3.5-5.1); SODIUM SERUM 135 mmol/L (136-145); TOTAL PROTEIN, SERUM 6.4 g/dL (6.4-8.2); UREA NITROGEN, BLOOD 23 mg/dL (7-18)
[2019-09-27] MEDS: ENSURE ENLIVE 237 ML LIQUID (VANILLA) PO SCH (08:10)
[2019-09-27] MEDS: THERAHONEY GEL 1.5 OZ TUBE TP SCH (08:10)
[2019-09-27] MEDS: CEFEPIME 2 GM in IV D5W 100 ML IV SCH (08:12)
[2019-09-27] MEDS: ASPIRIN 81 MG TAB.CHEW PO SCH (08:46)
[2019-09-27] MEDS: PANTOPRAZOLE 40 MG VIAL IV SCH (08:47)
[2019-09-27] MEDS: METOPROLOL SUCCINATE 25 MG TAB.SR.24H PO SCH (08:47)
[2019-09-27 10:00] VITALS: BP 122/62
[2019-09-27] MEDS ORDERED: VANCOMYCIN 0.75 GM in IV D5W 250 ML IV SCH (10:00)
[2019-09-27] MEDS ORDERED: POTASSIUM CHLORIDE 20 MEQ POWDER PACKET PO SCH (10:30)
[2019-09-27] MEDS: ACETAMINOPHEN 325 MG TABLET PO PRN (10:33)
[2019-09-27 16:25] VITALS: BP 96/52
[2019-09-27] MEDS: LINEZOLID 600 MG TABLET PO SCH (18:34)
--- NOTE | 2019-09-27 18:40 | NUR ---
MS RN CLOSING NOTES PATIENT REMAINS IN BED, AWAKE, A/O X3. PATIENT IS ON OXYGEN THERAPY AT 2 LPM VIA NASAL CANNULA. BREATHING IS EVEN AND UNLABORED, NO SOB NOTED DURING THE SHIFT. NO COMPLAINS OF PAIN DURING THE DAY. LFA G # 20 AND RIJ G # 20 IV ACCESS ARE PRESENT AND INTACT. NUNN CATH PRESENT DRAINING YELLOW URINE WITH 150 MLS OUTPUT. ALL NEEDS ATTENDED TO THROUGHOUT THE DAY. SAFETY PRECAUTIONS REMAIN IN PLACE; BED IN LOW POSITION AND LOCKED, RAILS UP X2, CALL LIGHT WITHIN REACH. WILL ENDORSE TO POOL TECHNICIAN NURSE.
--- NOTE | 2019-09-27 18:49 | NUR ---
MS RN NOTES DAILY NUNN OUTPUT 1100
--- NOTE | 2019-09-27 19:30 | NUR ---
MS RN OPENING NOTES PATIENT RECEIVED RESTING IN BED SLEEPING. ON 2L OF O2 WITH BREATHING EVEN AND UNLABORED, NO SOB NOTED. NO SIGNS OF ACUTE DISTRESS. NO COMPLAINTS OF PAIN OR DISCOMFORT AT THE MOMENT- NO FACIAL GRIMACING NOTED. NUNN IN PLACE AND NOTED. IV LOCATED ON LFA #20 AND RIJ #20. SAFETY PRECAUTIONS IN PLACE WITH BED IN LOWEST POSITION, CALL LIGHT WITHIN REACH, BREAKS ON, SIDE RAILS UP. WILL CONTINUE TO MONITOR THROUGHOUT THE NIGHT.
[2019-09-27 20:00] VITALS: BP 121/62
[2019-09-27] MEDS: TRAZODONE 50 MG TABLET PO SCH (21:04)
[2019-09-27] MEDS: ATORVASTATIN 40 MG TABLET PO SCH (21:04)
[2019-09-28] MEDS: IPRATROPIUM BROMIDE 14 GM INHALER (or 12.9 GM) IH SCH (01:05)
[2019-09-28] MEDS: ACETAMINOPHEN 325 MG TABLET PO PRN (02:54)
[2019-09-28] MEDS: VANCOMYCIN HCL 125 MG/2.5 ML ORAL.SUSP PO SCH ×2 (06:00→12:28)
--- NOTE | 2019-09-28 06:44 | NUR ---
MS RN CLOSING NOTES PATIENT RESTING IN BED SLEEPING. ON 2L OF O2 WITH BREATHING EVEN AND UNLABORED, NO SOB NOTED. NO SIGNS OF ACUTE DISTRESS. NO COMPLAINTS OF PAIN OR DISCOMFORT AT THE MOMENT- NO FACIAL GRIMACING NOTED. NUNN IN PLACE AND NOTED. IV LOCATED ON LFA #20 AND RIJ #20. SAFETY PRECAUTIONS IN PLACE WITH BED IN LOWEST POSITION, CALL LIGHT WITHIN REACH, BREAKS ON, SIDE RAILS UP. PATIENT KEPT CLEAN AND DRY THROUGHOUT THE NIGHT, ALL NEEDS ATTENDED TO. WILL ENDORSE TO ONCOMING SHIFT ABOUT JASPREET.
[2019-09-28 06:51] LABS: CALCIUM, SERUM 8.2 mg/dL (8.5-10.1); CREATININE 0.8 mg/dL (0.6-1.3); POTASSIUM 3.1 mmol/L (3.5-5.1)
[2019-09-28 08:00] VITALS: BP 111/58
[2019-09-28 09:00] VITALS: BP 111/58
[2019-09-28] MEDS: METOPROLOL SUCCINATE 25 MG TAB.SR.24H PO SCH (09:00)
[2019-09-28] MEDS ORDERED: CEFTRIAXONE 1 G in IV D5W 50 ML IV SCH (09:00)
[2019-09-28] MEDS ORDERED: FUROSEMIDE 40 MG TABLET PO SCH (09:30)
[2019-09-28] MEDS: LINEZOLID 600 MG TABLET PO SCH (09:31)
[2019-09-28] MEDS: ASPIRIN 81 MG TAB.CHEW PO SCH (09:31)
[2019-09-28] MEDS: PANTOPRAZOLE 40 MG VIAL IV SCH (09:31)
[2019-09-28] MEDS: LEVOTHYROXINE SODIUM 50 MCG TABLET PO SCH (09:31)
[2019-09-28] MEDS: ENSURE ENLIVE 237 ML LIQUID (VANILLA) PO SCH (09:33)
[2019-09-28] MEDS: POTASSIUM CHLORIDE 20 MEQ TAB.PRT.SR PO SCH ×3 (09:42→13:13)
[2019-09-28] MEDS ORDERED: Linezolid PO (10:46)
[2019-09-28] MEDS ORDERED: FURO40TA5 PO (10:46)
[2019-09-28] MEDS ORDERED: VANC125C11 PO (10:46)
[2019-09-28] MEDS ORDERED: CEFT1FRO2 IV (10:46)
[2019-09-28] MEDS: THERAHONEY GEL 1.5 OZ TUBE TP SCH (11:31)
--- NOTE | 2019-09-28 12:30 | NUR ---
NEW IV START RT AC #22 ANGIO.
--- NOTE | 2019-09-28 13:30 | NUR ---
potassium replacement given.medicated x 1 with zofran for nausea.
--- NOTE | 2019-09-28 14:40 | NUR ---
REFUSED DISCHARGE PHOTOS.
--- NOTE | 2019-09-28 15:40 | NUR ---
ALL PAPERS SIGNED,HEP LOCKS OUT.REPORT CALLED TO OLGA LIDIA AND ADDITIONALLY SPOKE TO ANAHY PETER SYSTOLIC BP 97/47.OK'D PT. TO BE TRANSFERRED BACK TO FACILITY.REPORT TO FRANKIE. DRIVERS.BELONGINGS SENT WITH PT.
--- NOTE | 2019-09-28 15:50 | NUR ---
AMB. TRANSMISSIONS SYSTEMS OPERATOR BACK UP TO FLOOR.EYGLASSES MISSING.RN AND COOPERATIVE EXTENSION AGENT LOOKED AROUND IN RM. AND THROUGH [facility],NOT FOUND. [facility] CALLED REGARDING MISSING GLASSES.RN SPOKE WITH ROME HIGGINBOTHAM.
[2019-09-29] MEDS ORDERED: ERGOCALCIFEROL (VITAMIN D 2) 50,000 UNIT CAPSULE PO SCH (09:00)
== END 2019-09-28 16:00 | DRG 280 ==
LOC: ER 08:05 → ICU 11:08 → MED 09-26 12:28 → TELE 09-26 16:44 → MED 09-27 08:35
PROVIDERS: ADMIT Nurse Practitioner Acute Care; ATTEND Internal Medicine
PROC: 0W993ZZ Drainage of Right Pleural Cavity, Percutaneous Approach (ICD-10-PCS; principal; 2019-09-27)
DX: I11.0 Hypertensive heart disease with heart failure (principal); A41.9 Sepsis, unspecified organism; I21.A1 Myocardial infarction type 2; J15.6 Pneumonia due to other Gram-negative bacteria; J96.01 Acute respiratory failure with hypoxia; J96.02 Acute respiratory failure with hypercapnia; N39.0 Urinary tract infection, site not specified; J90 Pleural effusion, not elsewhere classified; E87.2 Acidosis; E46 Unspecified protein-calorie malnutrition; Z68.1 Body mass index [BMI] 19.9 or less, adult; Z16.21 Resistance to vancomycin; I50.33 Acute on chronic diastolic (congestive) heart failure; E03.9 Hypothyroidism, unspecified; E78.5 Hyperlipidemia, unspecified; I25.10 Atherosclerotic heart disease of native coronary artery without angina pectoris; B96.20 Unspecified Escherichia coli [E. coli] as the cause of diseases classified elsewhere; D72.829 Elevated white blood cell count, unspecified; D47.3 Essential (hemorrhagic) thrombocythemia; K21.9 Gastro-esophageal reflux disease without esophagitis; Z95.1 Presence of aortocoronary bypass graft; I27.20 Pulmonary hypertension, unspecified; G31.84 Mild cognitive impairment of uncertain or unknown etiology; I48.0 Paroxysmal atrial fibrillation; D64.9 Anemia, unspecified; L89.156 Pressure-induced deep tissue damage of sacral region
CPT/HCPCS: 36415; 36600; 71045-TC; 80048-TC; 80053-TC; 80061-TC; 80202-TC; 81000-TC; 82248-TC; 82550-TC; 82728-TC; 82803-TC; 83540-TC; 83605-TC; 83615-TC; 83735-TC; 83880; 84100-TC; 84155-TC; 84484-TC; 85025-TC; 85378-TC; 85730-TC; 86140-TC; 87040-TC; 87070-TC; 87075-TC; 87081-TC; 87086-TC; 87102-TC; 87186-TC; 88108-TC; 88305-TC; 89051-TC; 93307-TC; 94799-TC; 97116-TC; 97530-TC; 99082-TC; C9113; G0378; J0282; J0692; J0696; J1100; J1940; J2405; J3370; J3475; J3490; J7030; J7050; J7060; U0003-CS

== ENCOUNTER 2019-10-11 20:57 | Inpatient (IN) | payer MEDICARE, OTHER ==
[~2019-10-11] VITALS: Ht 152.4 cm; Wt 35.4 kg
[~2019-10-11 20:57] MED LIST changes: +ACET-2605 PO; +ACET-868 PO; +ACID1TAB12 PO; +AMIN30LI2 PO; -AMLO10TA7 PO; +ARGI1POW13 PO; +ASCO-352 PO; +ASPI-1169 PO; -ATEN50TA PO; +BISM262O64 PO; +CEFT1FRO2 IV; +COLL30OI TP; +CRAN3875 PO; +CRAN425C6 PO; -LEVO500T90 PO; +LEVO50TA8 PO; +Linezolid PO; +METO-295 PO; +METO25TA3 PO; +MULT-447 PO; -NAPR-1192 PO; +OMEG1CAP PO; +OMEP20CA15 PO; -RIVA10TA PO; +TRAZ-182 PO; -VALS80TA2 PO; +VANC125C11 PO
--- NOTE | 2019-10-11 21:22 | NUR ---
PATIENT CAME TO ER BED 5 C/O SOB BIB RA FROM [facility]. PATIENT WAS BREATHING IN THE 70% ON ROOM AIR, PER RESCUE AMBULANCE REPORT. PATIENT HAS A NUNN CATHETER IN PLACE. PATIENT IS AAOX2. BREATHING EVENLY AND UNLABORED ON ROOM AIR 15L OF NONREBREATHER. PATIENT IS CONNECTED TO CLINICAL DATA MANAGER.
[2019-10-11] MEDS ORDERED: ENALAPRILAT DIHYD. (2.5MG/ML) 1.25 MG/ML VIAL IV ONE (21:30)
[2019-10-11] MEDS ORDERED: NITROGLYCERIN 0.4 MG/TAB BOTTLE SL ONE (21:30)
[2019-10-11] MEDS ORDERED: NTG 50 MG/D5W250 ML BOTTL 250 ML IV ONE (21:30)
[2019-10-11] MEDS ORDERED: FUROSEMIDE 40 MG/4 ML VIAL IV ONE (21:30)
[2019-10-11] MEDS ORDERED: NITROGLYCERIN 0.4 MG/TAB BOTTLE ONE (21:36)
[2019-10-11 21:37] LABS: BASOPHILS # (AUTO) 0.1 /CMM (0.0-0.2); BASOPHILS % (AUTO) 0.3 % (0.0-2.0); EOSINOPHILS % (AUTO) 0.3 % (0.0-6.0); HEMATOCRIT 37 % (33-45); HEMOGLOBIN 12.3 g/dL (11.5-14.8); MEAN CORPUSCULAR HGB CONC 33 g/dl (31.0-36.0); MEAN CORPUSCULAR VOLUME 97 fL (82-100); MONOCYTES % (AUTO) 4.8 % (2.0-12.0); NEUTROPHILS # (AUTO) 18.1 /CMM (1.8-8.9); NEUTROPHILS % (AUTO) 89.6 % (43.0-81.0); PLATELET COUNT (AUTO) 142 /CMM (150-450); RED BLOOD CELL COUNT(AUTO) 3.85 MIL/uL (4.0-5.2); WHITE BLOOD COUNT (AUTO) 20.2 K/uL (4.3-11.0)
[2019-10-11] MEDS ORDERED: FUROSEMIDE 40 MG/4 ML VIAL ONE (21:40)
[2019-10-11 21:50] LABS: CALCIUM, SERUM 9.3 mg/dL (8.5-10.1); CARBON DIOXIDE 31 mmol/L (21-32); CHLORIDE 98 mmol/L (98-107); CREATININE 0.8 mg/dL (0.6-1.3); GLUCOSE 148 mg/dL (74-106); POTASSIUM 3.6 mmol/L (3.5-5.1); SODIUM SERUM 135 mmol/L (136-145); UREA NITROGEN, BLOOD 14 mg/dL (7-18)
[2019-10-11] MEDS ORDERED: ENALAPRILAT INJ (1.25 MG/ML) 1.25 MG/ML VIAL IV ONE (21:54)
[2019-10-11 21:57] LABS: D-DIMER 2.03 mg/L(FEU (0.17-0.50)
[2019-10-11] MEDS ORDERED: VANCOMYCIN HCL 1.25 GM in IV D5W 260 ML IV ONE (22:00)
[2019-10-11] MEDS ORDERED: CEFEPIME 1 GM in IV D5W 50 ML IV ONE (22:00)
[2019-10-11] MEDS ORDERED: NTG 50 MG/D5W250 ML BOTTL 0 ML IV ONE (22:01)
[2019-10-11 22:02] LABS: ALANINE AMINOTRANSFERASE 43 U/L (12-78); ALBUMIN 2.9 g/dL (3.4-5.0); ALKALINE PHOSPHATASE 294 U/L (46-116); ASPARTATE AMINOTRANSFERASE 35 U/L (15-37); B-TYPE NATRIURETIC PEPTIDE 6147 PG/ML (0-125); BILIRUBIN,DIRECT 0.2 mg/dL (0.0-0.2); BILIRUBIN,TOTAL 0.6 mg/dL (0.2-1.0); TOTAL PROTEIN, SERUM 8.1 g/dL (6.4-8.2)
--- NOTE | 2019-10-11 22:16 | NUR ---
PT'S SON [phone] ONIK
[2019-10-11 22:54] LABS: C-REACTIVE PROTEIN 11.1 mg/dL (0.0-0.9)
[2019-10-11] MEDS ORDERED: MAGNESIUM HYDROXIDE 30 ML UDC PO PRN (23:30)
[2019-10-11] MEDS ORDERED: MAG HYDROX/AL HYDROX/SIMETH 30 ML UDC PO PRN (23:30)
[2019-10-11] MEDS ORDERED: Z GUARD REMEDY 2 OZ OINT TP PRN (23:30)
[2019-10-11] MEDS ORDERED: ONDANSETRON HCL/PF 4 MG/2 ML VIAL IVP PRN (23:30)
--- NOTE | 2019-10-11 23:54 | NUR ---
LANGE VIRUS SWAB SAMPLE TAKENT O LAB.
--- NOTE | 2019-10-12 00:09 | NUR ---
REPORT GIVEN TO BRODERICK PETER
[2019-10-12] MEDS ORDERED: CEFEPIME 1 GM VIAL ONE (00:12)
[2019-10-12] MEDS ORDERED: VANCOMYCIN 1 GM VIAL ONE (00:39)
--- NOTE | 2019-10-12 00:53 | NUR ---
RT AT BEDSIDE FOR ABG
[2019-10-12 01:30] LABS: ABG BASE EXCESS 5.7 mmol/L; ABG OXYGEN SATURATION 98.8 % (92.0-98.5); ABG PCO2 42.5 mmHg (35.0-45.0); ABG PH 7.466 (7.350-7.450); ABG PO2 143.8 mmHg (75.0-100.0); AaDO2 237.3 mmHg; COHb 0.3 % (0.5-1.5); MetHb 0.3 % (0.0-1.5); O2Hb 98.2 % (94.0-97.0); VENT MODE, BG simple mask
--- NOTE | 2019-10-12 03:22 | NUR ---
RN notes Awake, alert with confusion, patient received from ER via stretcher with diagnosis of respiratory failure. In no apparent distress, breathing even and unlabored. On 10lpm O2 via masks tolerating well. No complaint of pain or discomfort. Skin assessment done. Bed bath given. Comfortably blanket tucked in to bed. Needs attended. Will endorse to next shift for continuity of care.
[2019-10-12 04:00] VITALS: BP 109/66
[2019-10-12 06:43] LABS: BASOPHILS % (AUTO) 0.4 % (0.0-2.0); EOSINOPHILS % (AUTO) 0.2 % (0.0-6.0); HEMATOCRIT 27 % (33-45); LYMPHOCYTES % (AUTO) 8.1 % (20.0-44.0); MEAN CORPUSCULAR HGB CONC 34 g/dl (31.0-36.0); MEAN CORPUSCULAR VOLUME 96 fL (82-100); MONOCYTES # (AUTO) 0.9 /CMM (0.1-1.30); NEUTROPHILS # (AUTO) 10.8 /CMM (1.8-8.9); NEUTROPHILS % (AUTO) 84.3 % (43.0-81.0); PLATELET COUNT (AUTO) 101 /CMM (150-450); RED BLOOD CELL COUNT(AUTO) 2.79 MIL/uL (4.0-5.2); WHITE BLOOD COUNT (AUTO) 12.8 K/uL (4.3-11.0)
[2019-10-12 06:57] LABS: THYROID STIMULATING HORMONE 10.803 uIU/mL (0.358-3.74)
[2019-10-12 06:59] LABS: CALCIUM, SERUM 8.6 mg/dL (8.5-10.1); CREATININE 0.7 mg/dL (0.6-1.3); PHOSPHORUS 3.8 mg/dL (2.5-4.9); POTASSIUM 3.7 mmol/L (3.5-5.1)
[2019-10-12] MEDS ORDERED: FEE PK DOSING 1 MIN EA MC ONE (07:22)
--- NOTE | 2019-10-12 07:56 | NUR ---
RN OPENING NOTES RECEIVED PATIENT AWAKE AND RESTING IN BED COMFORTABLY, NOS/SX OF DISTRESS. PT IS AOX3, VERBAL, AND ON STRICT BED REST. SHE IS ON 10L OXYGEN VIA SIMPLE FACE MASK, TOLERATING WELL, DENIES SOB AT THIS TIME. TELE MONITOR SHOWING CONTROLLED A FIB. SKIN IS INTACT, PT NPO. IV SITE ON R HAND 22 G IS PATENT AND INTACT. CONTACT AND DROPLET ISO HAVE BEEN IMPLEMENTED AND ENFORCED FOR R/O COVID. SAFETY MEASURES HAVE BEEN IMPLEMENTED, CALL LIGHT IS WITHIN REACH, BED IS IN LOWEST AND LOCKED POSITION, SIDE RAILS UP X2, WILL CONTINUE TO MONITOR FOR ANY CHANGES.
[2019-10-12 08:00] VITALS: BP 122/66
[2019-10-12 08:16] LABS: ABG PO2 229.7 mmHg (75.0-100.0); AaDO2 145.3 mmHg; COHb 0.3 % (0.5-1.5); MetHb 0.3 % (0.0-1.5); O2Hb 98.4 % (94.0-97.0); SITE, ABG Left Radial; VENT MODE, BG S/M 10LPM
[2019-10-12] MEDS: ASPIRIN 81 MG TAB.CHEW PO SCH (09:30)
[2019-10-12] MEDS: LEVOTHYROXINE SODIUM 50 MCG TABLET PO SCH (09:30)
[2019-10-12] MEDS ORDERED: OMEPRAZOLE 20 MG CAPSULE.DR PO SCH (09:30)
[2019-10-12] MEDS: METOPROLOL SUCCINATE 25 MG TAB.SR.24H PO SCH (09:30)
[2019-10-12] MEDS: FUROSEMIDE 40 MG/4 ML VIAL IV SCH ×3 (09:40→17:29)
[2019-10-12] MEDS: ENOXAPARIN SODIUM 30 MG/0.3 ML DISP.SYRIN SQ SCH (09:41)
[2019-10-12] MEDS: CEFEPIME 1 GM in IV D5W 50 ML IV SCH ×2 (09:46→20:56)
[2019-10-12] MEDS: PANTOPRAZOLE 40 MG TABLET.DR PO SCH (09:47)
[2019-10-12] MEDS ORDERED: POTASSIUM CHLORIDE 20 MEQ TAB.PRT.SR PO SCH (10:00)
--- NOTE | 2019-10-12 10:44 | NUR ---
RN NOTES PT IS CURRENTLY NPO, UNABLE TO ADMIN PO MEDS. RECEIVED ORDER FROM DR WOO TO CHANGE 40 MEQ K DUR PO TO 40 MEQ POTASSIUM IV, WILL CONTINUE TO MONITOR
[2019-10-12] MEDS: POTASSIUM CL. PREMIX PERIPHER. 50 ML IV SCH ×2 (10:59→11:56)
[2019-10-12 12:00] VITALS: BP 115/49
[2019-10-12] MEDS ORDERED: VANCOMYCIN 500 MG in IV D5W 100 ML IV SCH (12:00)
[2019-10-12] MEDS ORDERED: POTASSIUM CHLORIDE 20 MEQ TAB.PRT.SR PO ONE (13:00)
[2019-10-12 16:00] VITALS: BP 121/61
[2019-10-12] MEDS: VANCOMYCIN 0.75 GM in IV D5W 250 ML IV SCH (17:29)
[2019-10-12] MEDS: AMIODARONE HCL 200 MG TABLET PO SCH (17:29)
--- NOTE | 2019-10-12 19:16 | NUR ---
RN CLOSING NOTES PATIENT IS RESTING COMFORTABLY IN BED, ENDORSED TO NIGHTSHIFT RN
[2019-10-12 20:00] VITALS: BP 105/52
[2019-10-12] MEDS: TRAZODONE 50 MG TABLET PO SCH (21:42)
[2019-10-12 21:57] LABS: APPEARANCE,URINE SL CLOUDY (CLEAR); BILIRUBIN,URINE NEGATIVE (NEGATIVE); BLOOD, URINE LARGE Ery/uL (NEGATIVE); COLOR,URINE YELLOW (YELLOW); KETONES,URINE TRACE (NEGATIVE); LEUKOCYTE ESTERASE ,URINE TRACE (NEGATIVE); NITRITE, URINE NEGATIVE (NEGATIVE); PROTEIN,URINE >=300 mg/dl (NEGATIVE); UGLUCOSE NEGATIVE (NEGATIVE); UROBILINOGEN,URINE 0.2 EU/dL (0.2)
[2019-10-12] MEDS ORDERED: ATORVASTATIN 40 MG TABLET PO SCH (22:00)
[2019-10-12 22:13] LABS: BACTERIA,URINE 1+ /HPF (None Seen); SQUAMOUS EPITHELIAL CELL,UR 0-2 /HPF (None Seen); URINE AMORPHOUS URATE Many /HPF (None Seen); YEAST,URINE Few /HPF (None Seen)
[2019-10-13] VITALS: BP 118/62
[2019-10-13 04:00] VITALS: BP 129/62
--- NOTE | 2019-10-13 05:40 | NUR ---
RN notes Resting comfortably in bed with no respiratory distress, breathing even and unlabored. ON 5l via nasal cannula, tolerating well. Alert and oriented., verbally able to communicate needs. No complaint of pain or discomfort. No significant change of condition. Vital signs wnl. Kept clean and dry. Will endorse to am shift for continuity of care.
--- NOTE | 2019-10-13 07:20 | NUR ---
RN OPENING NOTES RECEIVED PATIENT RESTING IN BED COMFORTABLY, EASILY AROUSED. SHE IS AOX 4, VERBAL, AND ON BED BOUND. SHE IS ON 5L OF OXYGEN VIA NC, TOLERATING WELL, NO RESP DISTRESS. TELE MONITOR STILL READING CONTROLLED A FIB. SACRAL REDNESS PRESENT. IV SITE ON PERRY MIDLINE IS PATENT AND INTACT. CONTACT AND DROPLET ISO HAVE BEEN IMPLEMENTED AND ENFORCED. SAFETY MEASURES HAVE BEEN IMPLEMENTED, CALL LIGHT IS WITHIN REACH, BED IS IN LOWEST AND LOCKED POSITION, SIDE RAILS UP X2, WILL CONTINUE TO MONITOR FOR ANY CHANGES.
[2019-10-13] MEDS: PANTOPRAZOLE 40 MG TABLET.DR PO SCH (07:52)
[2019-10-13] MEDS: LEVOTHYROXINE SODIUM 50 MCG TABLET PO SCH (07:53)
[2019-10-13 08:00] VITALS: BP 120/72
[2019-10-13 08:13] LABS: CALCIUM, SERUM 8.7 mg/dL (8.5-10.1); CREATININE 0.9 mg/dL (0.6-1.3); POTASSIUM 3.5 mmol/L (3.5-5.1)
[2019-10-13] MEDS: ASPIRIN 81 MG TAB.CHEW PO SCH (09:15)
[2019-10-13] MEDS: AMIODARONE HCL 200 MG TABLET PO SCH ×2 (09:15→16:55)
[2019-10-13] MEDS: METOPROLOL SUCCINATE 25 MG TAB.SR.24H PO SCH (09:16)
[2019-10-13] MEDS: POTASSIUM CL. PREMIX PERIPHER. 50 ML IV SCH ×4 (09:20→12:25)
[2019-10-13] MEDS: FUROSEMIDE 100 MG/10 ML VIAL IV SCH ×3 (09:20→16:59)
[2019-10-13] MEDS: ENOXAPARIN SODIUM 30 MG/0.3 ML DISP.SYRIN SQ SCH (09:21)
[2019-10-13] MEDS: CEFEPIME 1 GM in IV D5W 50 ML IV SCH ×2 (10:32→21:45)
[2019-10-13] MEDS: VANCOMYCIN 0.75 GM in IV D5W 250 ML IV SCH (11:26)
[2019-10-13 12:00] VITALS: BP 123/53
[2019-10-13 13:11] LABS: BASOPHILS # (AUTO) 0.1 /CMM (0.0-0.2); BASOPHILS % (AUTO) 0.7 % (0.0-2.0); EOSINOPHILS % (AUTO) 1.5 % (0.0-6.0); HEMATOCRIT 27 % (33-45); HEMOGLOBIN 9.2 g/dL (11.5-14.8); LYMPHOCYTES # (AUTO) 0.6 /CMM (0.8-4.8); LYMPHOCYTES % (AUTO) 8.8 % (20.0-44.0); MEAN CORPUSCULAR HGB CONC 34 g/dl (31.0-36.0); MEAN CORPUSCULAR VOLUME 96 fL (82-100); MONOCYTES # (AUTO) 0.6 /CMM (0.1-1.30); MONOCYTES % (AUTO) 8.4 % (2.0-12.0); NEUTROPHILS # (AUTO) 5.9 /CMM (1.8-8.9); NEUTROPHILS % (AUTO) 80.6 % (43.0-81.0); PLATELET COUNT (AUTO) 126 /CMM (150-450); RED BLOOD CELL COUNT(AUTO) 2.86 MIL/uL (4.0-5.2); WHITE BLOOD COUNT (AUTO) 7.3 K/uL (4.3-11.0)
[2019-10-13 16:00] VITALS: BP 111/56
--- NOTE | 2019-10-13 19:21 | NUR ---
RN CLOSING NOTES PT IS RESTING COMFORTABLY IN BED, ENDORSED TO NIGHTSHIFT RN FOR JASPREET.
[2019-10-13 20:00] VITALS: BP 117/60
[2019-10-13] MEDS: TRAZODONE 50 MG TABLET PO SCH (21:44)
[2019-10-14] VITALS (8 sets, daily range): BP systolic 105–139; BP diastolic 46–100
[2019-10-14] MEDS: ACETAMINOPHEN 325 MG TABLET PO PRN ×2 (01:14→14:00)
[2019-10-14] MEDS: VANCOMYCIN 0.75 GM in IV D5W 250 ML IV SCH (06:19)
--- NOTE | 2019-10-14 06:38 | NUR ---
RN notes Alert and oriented, in bed resting comfortably. Complaining of buttock pain. Reposition for comfort. Head of be elevated. Tylenol given with relief. No significant change of condition. Kept clean and dry. Waiting for covid result. Will endorse to next shift for continuity of care.
--- NOTE | 2019-10-14 07:42 | NUR ---
ESCALATION ENGINEER OPENING NOTES RECEIVED PATIENT IN BED, AWAKE, A/O X3. PATIENT ON OXYGEN THERAPY AT 5 LPM VIA NASAL CANNULA; BREATHING IS EVEN AND UNLABORED; N SOB NOTED AT THIS TIME. TELE MONITOR WITH A CURRENT READING OF AFIB AT 75 BPM. COMPLAINS OF BUTTOCK PAIN; WILL KEEP REPOSITIONING AND TURNING Q2HRS. PERRY MIDLINE RUNNING AT TKO. SAFETY PRECAUTIONS IN PLACE; BED IN LOW POSITION AND LOCKED, RAILS UP X2, CALL LIGHT WITHIN REACH. WILL CONTINUE TO MONITOR PATIENT.
[2019-10-14] MEDS: ASPIRIN 81 MG TAB.CHEW PO SCH (08:32)
[2019-10-14] MEDS: AMIODARONE HCL 200 MG TABLET PO SCH ×2 (08:33→16:43)
[2019-10-14] MEDS: METOPROLOL SUCCINATE 25 MG TAB.SR.24H PO SCH (08:33)
[2019-10-14] MEDS: PANTOPRAZOLE 40 MG TABLET.DR PO SCH (08:33)
[2019-10-14] MEDS: LEVOTHYROXINE SODIUM 50 MCG TABLET PO SCH (08:34)
[2019-10-14] MEDS: ENOXAPARIN SODIUM 30 MG/0.3 ML DISP.SYRIN SQ SCH (08:34)
[2019-10-14] MEDS: FUROSEMIDE 100 MG/10 ML VIAL IV SCH ×3 (09:30→16:42)
[2019-10-14] MEDS: METOLAZONE 2.5 MG TABLET PO SCH (09:30)
--- NOTE | 2019-10-14 10:02 | NUR ---
CENTER MAKER HAND NOTES LASIX AND ZAROXOLYN NON-ADMINISTERED DUE TO DECREASED BP. BP: 107/45 HR:75 WILL CONTINUE TO MONITOR PATIENT.
[2019-10-14] MEDS: CEFEPIME 1 GM in IV D5W 50 ML IV SCH (10:07)
[2019-10-14] MEDS: POTASSIUM CHLORIDE 20 MEQ TAB.PRT.SR PO SCH ×3 (10:07→12:10)
[2019-10-14 10:14] LABS: BASOPHILS % (AUTO) 0.8 % (0.0-2.0); HEMATOCRIT 25 % (33-45); HEMOGLOBIN 8.5 g/dL (11.5-14.8); LYMPHOCYTES # (AUTO) 0.8 /CMM (0.8-4.8); LYMPHOCYTES % (AUTO) 13.4 % (20.0-44.0); MEAN CORPUSCULAR HGB CONC 34 g/dl (31.0-36.0); MEAN CORPUSCULAR VOLUME 96 fL (82-100); MONOCYTES # (AUTO) 0.6 /CMM (0.1-1.30); NEUTROPHILS # (AUTO) 4.3 /CMM (1.8-8.9); NEUTROPHILS % (AUTO) 73.8 % (43.0-81.0); PLATELET COUNT (AUTO) 147 /CMM (150-450); RED BLOOD CELL COUNT(AUTO) 2.65 MIL/uL (4.0-5.2); WHITE BLOOD COUNT (AUTO) 5.8 K/uL (4.3-11.0)
--- NOTE | 2019-10-14 11:05 | NUR ---
WOUND CARE CONSULT: REVIEWED CHART, NURSING DOCUMENTATION AND PHOTOS WHICH SHOW SACRAL DEEP TISSUE INJURY, PRESENT ON ADMISSION. RECOMMEND SURGICAL CONSULT. DR ELLINGTON NOTIFIED OF CONSULT REQUEST. RECOMMENDATIONS MADE FOR SKIN PROTECTION. DISCUSSED WITH NURSING STAFF. WILL SEE PRN. KOO IN AGREEMENT WITH PLAN OF CARE. CURRENT LAQUITA SCORE IS 13.
[2019-10-14 11:18] LABS: ALBUMIN 2.1 g/dL (3.4-5.0); BILIRUBIN,TOTAL 0.4 mg/dL (0.2-1.0); CALCIUM, SERUM 8.3 mg/dL (8.5-10.1); MAGNESIUM 1.8 mg/dL (1.8-2.4); PHOSPHORUS 4.3 mg/dL (2.5-4.9); POTASSIUM 3.8 mmol/L (3.5-5.1)
--- NOTE | 2019-10-14 14:10 | NUR ---
OPTICAL LAB TECHNICIAN NOTES VITAL SIGNS TAKEN AT 1400 BP: 115/58 HR: 78
[2019-10-14] MEDS: ENSURE ENLIVE 237 ML LIQUID (VANILLA) PO SCH (16:36)
--- NOTE | 2019-10-14 18:49 | NUR ---
BINDERY OPERATOR CLOSING NOTES PATIENT IN BED, AWAKE, A/O X3. PATIENT ON OXYGEN THERAPY AT 5 LPM VIA NASAL CANNULA; BREATHING IS EVEN AND UNLABORED; N SOB NOTED AT THIS TIME. TELE MONITOR WITH A CURRENT READING OF AFIB. COMPLAINS OF BUTTOCK PAIN; TURNED AND REPOSITIONED Q2HRS, MEPILEX APPLIED. PERRY MIDLINE RUNNING AT TKO. NUNN OUTPUT 300 MLS FOR THE SHIFT. ALL NEEDS ATTENDED TO THROUGHOUT THE DAY. SAFETY PRECAUTIONS IN PLACE; BED IN LOW POSITION AND LOCKED, RAILS UP X2, CALL LIGHT WITHIN REACH. WILL ENDORSE TO ASSISTANT SIGNAL MAINTAINER NURSE.
--- NOTE | 2019-10-14 19:35 | NUR ---
DIRECTOR FIELD SERVICES OPEN NOTES PATIENT IS LAYING IN BED. A/O X4. ON 5L NASAL CANULA, NO SOB/ ACUTE RESPIRATORY DISTRESS NOTED. NO COMPLAINTS OF PAIN AT THE MOMENT. BED IS IN LOWEST LOCKED POSITION WITH SIDE RAILS UP X3, SEMI FOWLERS. CALL LIGHT IS WITHIN REACH. WILL CONTINUE TO MONITOR.
--- NOTE | 2019-10-14 20:23 | NUR ---
CHILD CARE GIVER NOTES CONTACTED PHARMACY REGARDING PT'S MYCAMINE SCHEDULED @ 1999. PHARMACY STATED THEY WILL DELIVER IT RIGHT NOW. WILL CONTINUE TO MONITOR PATIENT.
[2019-10-14] MEDS: MICAFUNGIN SODIUM 100 MG in IV NS 0.9% 100 ML IV SCH (20:47)
[2019-10-14] MEDS: TRAZODONE 50 MG TABLET PO SCH (21:00)
[2019-10-15] VITALS: BP 105/52
--- NOTE | 2019-10-15 00:13 | NUR ---
CAD TECHNICIAN NOTES RECEIVED CALL FROM LAB. PATIENT'S COVID RESULTS ARE NEGATIVE
--- NOTE | 2019-10-15 00:42 | NUR ---
BUTTON PUSHER NOTES CHARGE NURSE RECEIVED CALL FROM NURSING DIGITAL STRATEGIST REGARDING STATUS OF PATIENT. ACCORDING TO DIGITAL STRATEGIST, SINCE PT IS COVID NEGATIVE, PT WILL BE TRANSFERRED TO DIFFERENT UNIT IN AM.
[2019-10-15 04:00] VITALS: BP 117/70
--- NOTE | 2019-10-15 06:29 | NUR ---
ELECTRONICS SUPERVISOR CLOSE NOTES PATIENT IS LAYING IN BED, A/O X4. ON 5L NASAL CANULA, NO SOB/ ACUTE RESPIRATORY DISTRESS NOTED. APPEARS COMFORTABLE/ NO COMPLAINTS OF PAIN AT THE MOMENT. MIDLINE IN R UPPERARM IS PATENT AND INTACT. ALL DUE ANTIBIOTICS GIVEN. NUNN CATHETER IN PLACE, 1450 ML OUTPUT. BED IS IN LOWEST LOCKED POSITION WITH SIDE RAILS UP X3, SEMI FOWLERS. CALL LIGHT IS WITHIN REACH. WILL ENDORSE TO AM NURSE,
--- NOTE | 2019-10-15 07:37 | NUR ---
TELE/RN OPENING NOTES RECEIVED PATIENT IS ON BED, A/O X4. ON 5L NASAL CANULA, NO SOB/ ACUTE RESPIRATORY DISTRESS NOTED. NO COMPLAINTS OF PAIN AT THE MOMENT. MIDLINE IN R UPPER ARM PATENT AND INTACT. NUNN CATHETER IN PLACE. BED IS IN LOWEST LOCKED POSITION WITH SIDE RAILS UP X3, SEMI FOWLERS. CALL LIGHT IS WITHIN REACH. WILL CONTINUE TO MONITOR.
[2019-10-15 07:48] LABS: CALCIUM, SERUM 8.8 mg/dL (8.5-10.1); CARBON DIOXIDE 35 mmol/L (21-32); CHLORIDE 97 mmol/L (98-107); CREATININE 0.9 mg/dL (0.6-1.3); GLUCOSE 78 mg/dL (74-106); POTASSIUM 3.4 mmol/L (3.5-5.1); SODIUM SERUM 135 mmol/L (136-145); UREA NITROGEN, BLOOD 16 mg/dL (7-18)
[2019-10-15 08:00] VITALS: BP 131/60
[2019-10-15] MEDS: AMIODARONE HCL 200 MG TABLET PO SCH ×2 (08:43→16:58)
[2019-10-15] MEDS: METOLAZONE 2.5 MG TABLET PO SCH (08:43)
[2019-10-15] MEDS: PANTOPRAZOLE 40 MG TABLET.DR PO SCH (08:44)
[2019-10-15] MEDS: LEVOTHYROXINE SODIUM 50 MCG TABLET PO SCH (08:44)
[2019-10-15] MEDS: METOPROLOL SUCCINATE 25 MG TAB.SR.24H PO SCH (08:44)
[2019-10-15] MEDS: ASPIRIN 81 MG TAB.CHEW PO SCH (08:44)
[2019-10-15] MEDS: ENOXAPARIN SODIUM 30 MG/0.3 ML DISP.SYRIN SQ SCH (08:45)
[2019-10-15] MEDS: ENSURE ENLIVE 237 ML LIQUID (VANILLA) PO SCH ×2 (08:45→16:58)
[2019-10-15] MEDS ORDERED: BUMETANIDE INJ 16 MG in IV NS 0.9% 16 ML IV ONE (11:00)
[2019-10-15] MEDS: POTASSIUM CHLORIDE 20 MEQ TAB.PRT.SR PO SCH ×3 (11:32→14:12)
[2019-10-15 16:00] VITALS: BP 97/55
[2019-10-15 16:07] LABS: BASOPHILS # (AUTO) 0.1 /CMM (0.0-0.2); BASOPHILS % (AUTO) 1.5 % (0.0-2.0); EOSINOPHILS % (AUTO) 1.8 % (0.0-6.0); HEMATOCRIT 27 % (33-45); LYMPHOCYTES # (AUTO) 0.9 /CMM (0.8-4.8); LYMPHOCYTES % (AUTO) 16.1 % (20.0-44.0); MEAN CORPUSCULAR HGB CONC 33 g/dl (31.0-36.0); MEAN CORPUSCULAR VOLUME 97 fL (82-100); MONOCYTES # (AUTO) 0.5 /CMM (0.1-1.30); MONOCYTES % (AUTO) 8.2 % (2.0-12.0); NEUTROPHILS % (AUTO) 72.4 % (43.0-81.0); PLATELET COUNT (AUTO) 173 /CMM (150-450); WHITE BLOOD COUNT (AUTO) 5.6 K/uL (4.3-11.0)
--- NOTE | 2019-10-15 19:13 | NUR ---
TELE/RN CLOSING NOTES PATIENT IS ON BED. ALERT AND ORIENTED X4. ON 5L NASAL CANULA, PATIENT IN NO APPARENT RESPIRATORY DISTRESS NOTED. NO COMPLAINTS OF PAIN AT THIS TIME. TELE MONITOR READING SR WITH PAC 94 BPM. IV ACCESS AT RIGHT UPPER ARM MIDLINE PATENT AND INTACT. NUNN CATHETER IN PLACE. SEEN AND EXAMINED BY MD WITH ORDERS MADE AND CARRIED OUT. ALL DUE MEDICATION WAS GIVEN. CHECKED PATIENT EVERY 2 HOURS. BED IS IN LOWEST LOCKED POSITION WITH SIDE RAILS UP X3. CALL LIGHT IS WITHIN REACH. WILL ENDORSED TO TAXIMETER REPAIRER FOR [facility].
[2019-10-15] MEDS: MICAFUNGIN SODIUM 100 MG in IV NS 0.9% 100 ML IV SCH (19:30)
--- NOTE | 2019-10-15 19:59 | NUR ---
MS RN OPEN NOTES PATIENT IS SLEEPING IN BED, AROUSES EASILY. ON 4L NASAL CANULA, NO SOB/ ACUTE RESPIRATORY DISTRESS NOTED. NO COMPLAINTS OF PAIN AT THE MOMENT. BED IS IN LOWEST LOCKED POSITION WITH SIDE RAILS UP X3, SEMI FOWLERS. CALL LIGHT IS WITHIN REACH. WILL CONTINUE TO MONITOR.
[2019-10-15 20:00] VITALS: BP 98/55
[2019-10-15] MEDS: TRAZODONE 50 MG TABLET PO SCH (21:15)
[2019-10-15] MEDS: ACETAMINOPHEN 325 MG TABLET PO PRN (21:15)
--- NOTE | 2019-10-16 06:23 | NUR ---
MS RN CLOSE NOTES PATIENT IS SLEEPING IN BED. A/O X3 WITH PERIODS OF CONFUSION. ON 4L NASAL CANULA, NO SOB/ ACUTE RESPIRATORY DISTRESS NOTED. MIDLINE IN R UPPERARM IS PATENT AND INTACT, ALL DUE ANTIBIOTICS GIVEN. NUNN CATHETER IN PLACE 1400 ML OUTPUT. APPEARS COMFORTABLE/ NO COMPLAINTS OF PAIN AT THE MOMENT. BED IS IN LOWEST LOCKED POSITION WITH SIDE RAILS UP X3, SEMI FOWLERS. CALL LIGHT IS WITHIN REACH. WILL ENDORSE TO AM NURSE.
[2019-10-16 07:00] LABS: BASOPHILS # (AUTO) 0.1 /CMM (0.0-0.2); BASOPHILS % (AUTO) 0.8 % (0.0-2.0); EOSINOPHILS % (AUTO) 2.3 % (0.0-6.0); HEMATOCRIT 35 % (33-45); HEMOGLOBIN 11.4 g/dL (11.5-14.8); LYMPHOCYTES # (AUTO) 1.3 /CMM (0.8-4.8); LYMPHOCYTES % (AUTO) 18.4 % (20.0-44.0); MEAN CORPUSCULAR HGB CONC 33 g/dl (31.0-36.0); MEAN CORPUSCULAR VOLUME 96 fL (82-100); MONOCYTES # (AUTO) 0.8 /CMM (0.1-1.30); MONOCYTES % (AUTO) 10.9 % (2.0-12.0); NEUTROPHILS # (AUTO) 4.7 /CMM (1.8-8.9); NEUTROPHILS % (AUTO) 67.6 % (43.0-81.0); PLATELET COUNT (AUTO) 215 /CMM (150-450); RED BLOOD CELL COUNT(AUTO) 3.62 MIL/uL (4.0-5.2)
[2019-10-16] MEDS: PANTOPRAZOLE 40 MG TABLET.DR PO SCH (07:38)
[2019-10-16] MEDS: LEVOTHYROXINE SODIUM 50 MCG TABLET PO SCH (07:38)
[2019-10-16 07:46] LABS: ALBUMIN 2.5 g/dL (3.4-5.0); BILIRUBIN,TOTAL 0.4 mg/dL (0.2-1.0); CALCIUM, SERUM 9.3 mg/dL (8.5-10.1); CREATININE 1.1 mg/dL (0.6-1.3); MAGNESIUM 2.1 mg/dL (1.8-2.4); POTASSIUM 3.7 mmol/L (3.5-5.1); TOTAL PROTEIN, SERUM 7.2 g/dL (6.4-8.2)
[2019-10-16] MEDS: METOPROLOL SUCCINATE 25 MG TAB.SR.24H PO SCH (08:12)
[2019-10-16] MEDS: ASPIRIN 81 MG TAB.CHEW PO SCH (08:13)
[2019-10-16] MEDS: METOLAZONE 2.5 MG TABLET PO SCH (08:13)
[2019-10-16] MEDS: ENOXAPARIN SODIUM 30 MG/0.3 ML DISP.SYRIN SQ SCH (08:14)
[2019-10-16] MEDS: ENSURE ENLIVE 237 ML LIQUID (VANILLA) PO SCH ×2 (08:18→17:16)
[2019-10-16] MEDS: AMIODARONE HCL 200 MG TABLET PO SCH ×2 (08:18→17:16)
[2019-10-16 08:40] VITALS: BP 121/67
[2019-10-16] MEDS ORDERED: BUMETANIDE INJ 16 MG in IV NS 0.9% 16 ML IV ONE (10:00)
[2019-10-16 16:00] VITALS: BP 96/59
--- NOTE | 2019-10-16 16:40 | NUR ---
Endorse patient to [facility] for han
--- NOTE | 2019-10-16 19:20 | NUR ---
RN CLOSING NOTE I received the patient around 1700 from Irlanda PETER. Patient is resting in bed, showing no signs of acute distress, stable on 4L NC. PERRY midline noted running TKO. Patient able to take medications crushed and patient able to drink ensure, refused breakfast lunch and dinner per Irlanda PETER. Patient cleaned and linens changed, no BM today. Greco catheter with 800cc out. I was able to have Johnathan PETER translate for patient in Emirati to obtain consent for US guided thoracentesis of the left lung. Patient is A/Ox3, Emirati speaking. Per Johnathan RN, patient states, "Yes I want to have the procedure, because I am having a hard time breathing." Patient able to verbalize to me in Omani, "when is the doctor coming to do procedure?" I told her the procedure will be done tomorrow. I called family members 2 times and no answer. Consent was signed by ROME Mann and myself, patient stated she is too weak to sign. Bed is in lowest position, side rails x3 in upright position, call light is within reach, fall safety and aspiration precautions enforced. Endorsed to night worker Vilmastephanie PETER for JASPREET.
--- NOTE | 2019-10-16 19:40 | NUR ---
MS RN NOTES RECEIVED ON BED A/O X3,SPEAK JORDANIAN WITH LITTLE CHINESE.BREATHING NON LABORED,O2 IN USED AT 4L/TO KEEP O2 SAT ABOVE 90%.WITH SALINE LOCK PERRY MIDLINE INTACT AND PATENT,NS AT TKO RATE IN PROGRESS.NUNN CATH IN PLACE DRAINING CLEAR YELLOW URINE OUTPUT.NOTED MULTIPLE SKIN DISCOLORATION.SACRAL DTI WITH MEPILEX IN PLACE.FALL RISK,BED ON LOWEST POSITION AND LOCKED.CALL LIGHT IN REACH,NEEDS ANTICIPATED.
[2019-10-16 20:00] VITALS: BP 109/66
[2019-10-16] MEDS: MICAFUNGIN SODIUM 100 MG in IV NS 0.9% 100 ML IV SCH (20:11)
[2019-10-16] MEDS: TRAZODONE 50 MG TABLET PO SCH (21:49)
--- NOTE | 2019-10-17 06:47 | NUR ---
MS RN NOTES SLEPT WELL AT NIGHT,NO EPISODE OF SOB NOTED.ALL DUE MEDS ADMINISTERED.FOR ULTRASOUND GUIDED THORACENTESIS TODAY,CONSENT ON CHART.NUNN CATH DRAINS WELL.IN NO ACUTE DISTRESS
--- NOTE | 2019-10-17 07:30 | NUR ---
MS/RN OPENING NOTES Received patient in bed, A&O x 3, French speaking. Denies pain or discomfort at this time. On 4L oxygen via NC, no SOB noted. No respiratory or cardiac distress noted. Midline access located on PERRY, kept TKO, patent, intact, and flushing well. Sensation from all peripheral extremities noted. Consent signed for US guided thoracentesis today. Fall precautions maintained. Will continue to monitor patient for any changes in condition.
[2019-10-17 08:00] VITALS: BP 93/60
[2019-10-17] MEDS: LEVOTHYROXINE SODIUM 50 MCG TABLET PO SCH (08:15)
[2019-10-17] MEDS: ASPIRIN 81 MG TAB.CHEW PO SCH (08:17)
[2019-10-17] MEDS: AMIODARONE HCL 200 MG TABLET PO SCH ×2 (08:17→17:26)
[2019-10-17] MEDS: PANTOPRAZOLE 40 MG TABLET.DR PO SCH (08:22)
[2019-10-17] MEDS: METOLAZONE 2.5 MG TABLET PO SCH (08:23)
[2019-10-17] MEDS: METOPROLOL SUCCINATE 25 MG TAB.SR.24H PO SCH (08:23)
[2019-10-17] MEDS: ENOXAPARIN SODIUM 30 MG/0.3 ML DISP.SYRIN SQ SCH (08:25)
--- NOTE | 2019-10-17 08:26 | NUR ---
MS/RN NOTES Non-administered lovenox due to thoracentesis procedure scheduled today.
[2019-10-17 08:59] LABS: CALCIUM, SERUM 9.4 mg/dL (8.5-10.1); CREATININE 1.3 mg/dL (0.6-1.3); POTASSIUM 3.5 mmol/L (3.5-5.1)
[2019-10-17] MEDS: ENSURE ENLIVE 237 ML LIQUID (VANILLA) PO SCH ×2 (09:05→17:26)
--- NOTE | 2019-10-17 10:23 | NUR ---
MS/RN NOTES Thoracentesis done by Dr. Sloan. 500 cc out. Ordered stat chest x-ray. Will continue to monitor patient.
[2019-10-17 16:00] VITALS: BP 96/50
--- NOTE | 2019-10-17 19:33 | NUR ---
MS/RN CLOSING NOTES Patient resting in bed, A&O x 3. No complaints of pain and discomfort at this time. Patient did not have good appetite today, only consuming 25-50% of meals. Patient slept the whole day. Breathing even and non-labored on 4L oxygen via NC. No respiratory or cardiac distress noted. Midline access located on PERRY, kept TKO, patent, intact, and flushing well. Sensation from all peripheral extremities noted. VSS remain stable during the shift. Greco catheter in place, draining yellow urine well, 100 cc output noted only. 500 cc output noted for thoracentesis in the morning. Fall precautions maintained. Will endorse to state director nurse.
[2019-10-17 20:00] VITALS: BP 95/46
--- NOTE | 2019-10-17 20:00 | NUR ---
ms tire stripper initial notes received pt in bed resting with eyes closed but arouses to touch and to her name. not in any acute distress noted. Respiration even and non-labored. skin warm and dry to touch and noticed some bruising. Greco to gravity . on semi fowlers position with side rails x2 up and bed in low and lock in position . bed alarm set for safety. place call light at reach.
[2019-10-17] MEDS: MICAFUNGIN SODIUM 100 MG in IV NS 0.9% 100 ML IV SCH (21:05)
[2019-10-17] MEDS: TRAZODONE 50 MG TABLET PO SCH (22:31)
[2019-10-18] VITALS: BP 105/55
--- NOTE | 2019-10-18 | NUR ---
ms horacio notes pt sleeping comfortably in bed without any distress noted. kept her warm and comfortable at all times. will continue monitoring.
--- NOTE | 2019-10-18 06:37 | NUR ---
ms horacio notes pt woke up and morning care rendered with the helped of HELMET HAT SWEATBAND PUNCHER, reposition pt for comfort. Stable ananth the night and slept well. Greco still intact . no signs of any distress noted at this time. kept her warm and comfortable at all times. Bed in low and lock in position with side rails x2 up and bed alarm set for safety. will continue monitoring.
[2019-10-18 07:44] LABS: CALCIUM, SERUM 8.6 mg/dL (8.5-10.1); CARBON DIOXIDE 39 mmol/L (21-32); CHLORIDE 93 mmol/L (98-107); CREATININE 1.5 mg/dL (0.6-1.3); GLUCOSE 92 mg/dL (74-106); MAGNESIUM 2.3 mg/dL (1.8-2.4); POTASSIUM 3.1 mmol/L (3.5-5.1); SODIUM SERUM 135 mmol/L (136-145); UREA NITROGEN, BLOOD 42 mg/dL (7-18)
[2019-10-18 07:53] LABS: BASOPHILS # (AUTO) 0.1 /CMM (0.0-0.2); BASOPHILS % (AUTO) 0.9 % (0.0-2.0); EOSINOPHILS % (AUTO) 2.7 % (0.0-6.0); HEMATOCRIT 30 % (33-45); LYMPHOCYTES # (AUTO) 1.4 /CMM (0.8-4.8); LYMPHOCYTES % (AUTO) 16.8 % (20.0-44.0); MEAN CORPUSCULAR HGB CONC 33 g/dl (31.0-36.0); MEAN CORPUSCULAR VOLUME 96 fL (82-100); MONOCYTES # (AUTO) 0.6 /CMM (0.1-1.30); MONOCYTES % (AUTO) 7.9 % (2.0-12.0); NEUTROPHILS # (AUTO) 5.9 /CMM (1.8-8.9); NEUTROPHILS % (AUTO) 71.7 % (43.0-81.0); PLATELET COUNT (AUTO) 258 /CMM (150-450); RED BLOOD CELL COUNT(AUTO) 3.14 MIL/uL (4.0-5.2); WHITE BLOOD COUNT (AUTO) 8.2 K/uL (4.3-11.0)
[2019-10-18 08:00] VITALS: BP 90/45
[2019-10-18] MEDS: METOLAZONE 2.5 MG TABLET PO SCH (09:00)
[2019-10-18] MEDS: METOPROLOL SUCCINATE 25 MG TAB.SR.24H PO SCH (09:00)
[2019-10-18] MEDS: ASPIRIN 81 MG TAB.CHEW PO SCH (09:13)
[2019-10-18] MEDS: AMIODARONE HCL 200 MG TABLET PO SCH ×2 (09:15→17:00)
[2019-10-18] MEDS: PANTOPRAZOLE 40 MG TABLET.DR PO SCH (09:16)
[2019-10-18] MEDS: LEVOTHYROXINE SODIUM 50 MCG TABLET PO SCH (09:16)
[2019-10-18] MEDS: ENOXAPARIN SODIUM 30 MG/0.3 ML DISP.SYRIN SQ SCH (09:17)
[2019-10-18] MEDS: ENSURE ENLIVE 237 ML LIQUID (VANILLA) PO SCH ×2 (09:23→17:39)
[2019-10-18] MEDS ORDERED: POTASSIUM CHLORIDE 10 MEQ TABLET.SA PO ONE (10:30)
[2019-10-18 16:00] VITALS: BP 92/52
--- NOTE | 2019-10-18 19:30 | NUR ---
MS RN RECEIVE PT IN BED AWAKE A/O X 2 STABLE, NO S/S OF DISTRESS, SAFETY MEASURES AT ALL TIMES. WILL CONT TO MONITOR PT
[2019-10-18 20:00] VITALS: BP_SYST 102; BP_SYST 118; BP_DIAS 53; BP_DIAS 83
[2019-10-18] MEDS: MICAFUNGIN SODIUM 100 MG in IV NS 0.9% 100 ML IV SCH (21:27)
[2019-10-18] MEDS: HEPARIN SODIUM, PORCINE 5000 UNITS/1 ML VIAL SQ SCH (21:28)
[2019-10-18] MEDS: TRAZODONE 50 MG TABLET PO SCH (21:28)
[2019-10-18] MEDS: ACETAMINOPHEN 325 MG TABLET PO PRN (21:56)
--- NOTE | 2019-10-19 05:54 | NUR ---
MS RN PT SLEPT WELL, AM CARE RENDERED, GOOD SKIN CARE, NO S/S OF DISTRESS, ALL NEEDS ATTENDED AND ANTICIPATED, MONITORED ACCORDINGLY, KEPT CLEAN, COMFORTABLE. REPOSITION EVERY 2 HOURS, NO SOB NOTED, 4LPM VIA NC O2 SAT AT 95%. SAFETY MEASURES AT ALL TIMES. ENDORSE NEXT SHIFT POC.
--- NOTE | 2019-10-19 07:30 | NUR ---
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 A/O X2, vital signs stable, does not appear in any pain at this time. Saturation on 4l via nasal cannula 100%. Midline to right upper arm flushing well with normal saline. Greco catheter draining well. Call light within reach, bed in low setting, side rails X3 in upright position, bed alarm switched on. Will continue to monitor and ensure safety.
[2019-10-19 08:00] VITALS: BP 97/48
[2019-10-19 08:09] LABS: BASOPHILS % (AUTO) 0.7 % (0.0-2.0); EOSINOPHILS % (AUTO) 4.7 % (0.0-6.0); HEMATOCRIT 30 % (33-45); LYMPHOCYTES % (AUTO) 17.4 % (20.0-44.0); MEAN CORPUSCULAR HGB CONC 33 g/dl (31.0-36.0); MEAN CORPUSCULAR VOLUME 96 fL (82-100); MONOCYTES # (AUTO) 0.4 /CMM (0.1-1.30); MONOCYTES % (AUTO) 6.9 % (2.0-12.0); NEUTROPHILS # (AUTO) 4.1 /CMM (1.8-8.9); NEUTROPHILS % (AUTO) 70.3 % (43.0-81.0); PLATELET COUNT (AUTO) 253 /CMM (150-450); RED BLOOD CELL COUNT(AUTO) 3.13 MIL/uL (4.0-5.2); WHITE BLOOD COUNT (AUTO) 5.8 K/uL (4.3-11.0)
[2019-10-19] MEDS: ASPIRIN 81 MG TAB.CHEW PO SCH (08:55)
[2019-10-19] MEDS: PANTOPRAZOLE 40 MG TABLET.DR PO SCH (08:55)
[2019-10-19] MEDS: ENSURE ENLIVE 237 ML LIQUID (VANILLA) PO SCH ×2 (08:56→17:11)
[2019-10-19] MEDS: LEVOTHYROXINE SODIUM 50 MCG TABLET PO SCH (08:56)
[2019-10-19] MEDS: AMIODARONE HCL 200 MG TABLET PO SCH ×2 (08:56→17:00)
[2019-10-19] MEDS: HEPARIN SODIUM, PORCINE 5000 UNITS/1 ML VIAL SQ SCH (08:57)
[2019-10-19] MEDS ORDERED: METOPROLOL SUCCINATE 25 MG TAB.SR.24H PO SCH (09:00)
[2019-10-19 09:11] LABS: ALANINE AMINOTRANSFERASE 35 U/L (12-78); ALBUMIN 2.2 g/dL (3.4-5.0); ALKALINE PHOSPHATASE 140 U/L (46-116); ASPARTATE AMINOTRANSFERASE 35 U/L (15-37); BILIRUBIN,TOTAL 0.3 mg/dL (0.2-1.0); CALCIUM, SERUM 8.5 mg/dL (8.5-10.1); CARBON DIOXIDE 39 mmol/L (21-32); CHLORIDE 93 mmol/L (98-107); CREATININE 1.5 mg/dL (0.6-1.3); GLUCOSE 80 mg/dL (74-106); MAGNESIUM 2.1 mg/dL (1.8-2.4); PHOSPHORUS 3.6 mg/dL (2.5-4.9); SODIUM SERUM 134 mmol/L (136-145); TOTAL PROTEIN, SERUM 6.2 g/dL (6.4-8.2); UREA NITROGEN, BLOOD 46 mg/dL (7-18)
--- NOTE | 2019-10-19 09:45 | NUR ---
MS/RN Medications Morning medications administered crushed with apple sauce.
--- NOTE | 2019-10-19 13:00 | NUR ---
MS/RN S/B Dr Lin Seen by MD - patient to be discharged back to SNF later this evening. All paperwork completed, chart copied. Report still needs to be given to facility.
[2019-10-19 16:00] VITALS: BP 82/40
[2019-10-19] MEDS: MICAFUNGIN SODIUM 100 MG in IV NS 0.9% 100 ML IV SCH (17:47)
--- NOTE | 2019-10-19 18:19 | NUR ---
MS/RN End note Patient to be discharged to SNF this evening, picker machine operator arranged for 2030, exit care prepared, chart copied. Report to be called to SNF.
--- NOTE | 2019-10-19 19:50 | NUR ---
MS RN RECEIVE PT IN BED AWAKE WATCHING TV A/O X 1 STABLE, NO S/S OF DISTRESS, FOR DISCHARGE REPORT GIVEN TO ANAHY PETER SAFETY MEASURES AT ALL TIMES. WILL CONT TO MONITOR PT
[2019-10-19 20:00] VITALS: BP 102/55
--- NOTE | 2019-10-19 23:36 | NUR ---
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 DOCUMENTS WAS PROVIDED TO EMT TECH. CONTINUE MEDICATION PRESCRIPTION WAS PROVIDED. REPORT GIVEN TO ANAHY PETER SOHR VERBALIZED UNDERSTANDING. RUE MIDLINE INTACT PER PRIMARY PT WILL HAVE ANTIBIOTIC UNTIL 10/20 COVERED WITH CLEAN DRESSING. PT NO BELONGINGS
== END 2019-10-19 20:20 | DRG 291 ==
LOC: ER 21:01 → TELE-TD 22:34 → TELE1 10-12 12:59 → MED 10-15 10:06
PROVIDERS: ADMIT Nurse Practitioner Acute Care
PROC: 05H533Z Insertion of Infusion Device into Right Subclavian Vein, Percutaneous Approach (ICD-10-PCS; principal; 2019-10-12)
PROC: B546ZZA Ultrasonography of Right Subclavian Vein, Guidance (ICD-10-PCS; 2019-10-12)
PROC: 0W9B3ZZ Drainage of Left Pleural Cavity, Percutaneous Approach (ICD-10-PCS; 2019-10-17)
DX: I11.0 Hypertensive heart disease with heart failure (principal); J96.01 Acute respiratory failure with hypoxia; G93.41 Metabolic encephalopathy; J96.02 Acute respiratory failure with hypercapnia; R65.11 Systemic inflammatory response syndrome (SIRS) of non-infectious origin with acute organ dysfunction; D68.59 Other primary thrombophilia; B37.49 Other urogenital candidiasis; E87.1 Hypo-osmolality and hyponatremia; N17.9 Acute kidney failure, unspecified; I48.20 Chronic atrial fibrillation, unspecified; E87.2 Acidosis; J90 Pleural effusion, not elsewhere classified; Z68.1 Body mass index [BMI] 19.9 or less, adult; E46 Unspecified protein-calorie malnutrition; I50.43 Acute on chronic combined systolic (congestive) and diastolic (congestive) heart failure; D69.6 Thrombocytopenia, unspecified; E03.9 Hypothyroidism, unspecified; E78.5 Hyperlipidemia, unspecified; I25.10 Atherosclerotic heart disease of native coronary artery without angina pectoris; I25.2 Old myocardial infarction; Z95.1 Presence of aortocoronary bypass graft; K21.9 Gastro-esophageal reflux disease without esophagitis; F03.90 Unspecified dementia, unspecified severity, without behavioral disturbance, psychotic disturbance, mood disturbance, and anxiety; L89.156 Pressure-induced deep tissue damage of sacral region
CPT/HCPCS: 36410; 36415; 36600; 71045-TC; 80048-TC; 80053-TC; 80061-TC; 80076-TC; 80202-TC; 81000-TC; 82550-TC; 82728-TC; 82803-TC; 83540-TC; 83605-TC; 83615-TC; 83735-TC; 83880; 84100-TC; 84439-TC; 84443-TC; 84484-TC; 85025-TC; 85378-TC; 85385-TC; 85730-TC; 86140-TC; 87040-TC; 87070-TC; 87075-TC; 87081-TC; 87086-TC; 87102-TC; 88108-TC; 88305-TC; 89051-TC; A6253; G0378; J0692; J1644; J1650; J1940; J2248; J3370; J3480; J3490; J7030; J7040; J7050; J7060; U0003-CS